=== PATIENT | female | born 1955 | race Caucasian/White ===

== ENCOUNTER 2016-09-04 07:07 | Day surgery (SDC) | payer MEDICAID ==
[2016-09-04 07:44] VITALS: BMI 31.4
[2016-09-04] MEDS ORDERED: Lactated Ringer's 500 ML IV ONE ×2 (08:53)
[2016-09-04] MEDS ORDERED: Propofol 10 mg/ml Inj (20 ML) ONE (09:13)
[2016-09-04] MEDS ORDERED: Lidocaine Hydrochloride 5 ML INJ ONE (09:22)
[2016-09-04 09:51] VITALS: TEMP 98.1
[2016-09-04 10:16] VITALS: O2SAT 99
[2016-09-04 10:19] VITALS: BP 166/96; PULSE 66; RESP 17
== END 2016-09-04 10:17 | disposition home or self-care (01) ==
LOC: C.ENDO 07:07
PROVIDERS: ATTEND Internal Medicine Gastroenterology
DX: K29.50 Unspecified chronic gastritis without bleeding (principal); B96.81 Helicobacter pylori [H. pylori] as the cause of diseases classified elsewhere

== ENCOUNTER 2016-12-06 14:55 | Inpatient (IN) | payer MEDICAID ==
[2016-12-06 14:55] VITALS: BMI 31.4
[2016-12-06] MEDS ORDERED: Sodium Chloride 0.9% 1,000 ML IV ONE (15:59)
--- NOTE | 2016-12-06 16:05 | C.PDOC ---
History Of Present Illness Patient is a 61 y/o female, whose PMHx includes Lupus, and HTN, is sent to the ED by PMD for abnormal lab results. Patient has copy of lab reports, that shows BUN of 96 and creatinine of 9.8. Patient is also complaining of non-radiating, and aching lower back pain for the past month. Patient also notes decreased appetite, and states she has lost 7lbs in the last 3 months unintentionally. Otherwise, denies any n/v/d, abdominal pain, urinary symptoms, weakness/numbness , fever, chills, or any other associated symptoms at this time. Time Seen by Provider: 12/06/16 15:39 Chief Complaint (Nursing): Back Pain History Per: Patient History/Exam Limitations: no limitations Onset/Duration Of Symptoms: Days Current Symptoms Are (Timing): Still Present Quality Of Discomfort: "Pain" Associated Symptoms: None. denies: Incontinence, New Weakness, New Numbness Recent travel outside of the [place]: No Additional History Per: Patient Past Medical History Reviewed: Historical Data, Nursing Documentation, Vital Signs Vital Signs: Last Vital Signs Temp 97 F L 12/06/16 15:06 Pulse 64 12/06/16 17:11 Resp 12 12/06/16 17:11 BP 181/96 H 12/06/16 17:11 Pulse Ox 99 12/06/16 17:34 - Medical History PMH: Back Problems, HTN, Chronic Kidney Disease, Rheumatoid Arthritis Surgical History: Endoscopy - [facility] Procedures OTH UNILAT OOPHORECTOMY (03/02/00) Family History: States: Unknown Family Hx - Social History Hx Tobacco Use: No Hx Alcohol Use: Yes Hx Substance Use: No - Immunization History Hx Tetanus Toxoid Vaccination: No Hx Influenza Vaccination: No Hx Pneumococcal Vaccination: No Review Of Systems Except As Marked, All Systems Reviewed And Found Negative. Constitutional: Positive for: Weight loss. Negative for: Fever, Chills Gastrointestinal: Negative for: Nausea, Vomiting, Abdominal Pain, Diarrhea Genitourinary: Negative for: Dysuria, Frequency, Incontinence, Hematuria Musculoskeletal: Positive for: Back Pain Physical Exam - Physical Exam Appears: Non-toxic, No Acute Distress Skin: Normal Color, Warm, Dry Head: Atraumatic, Normacephalic Eye(s): bilateral: Normal Inspection, EOMI Nose: Normal Oral Mucosa: Moist Neck: Normal ROM, Supple Chest: Symmetrical, No Tenderness Cardiovascular: Rhythm Regular, No Murmur Respiratory: Normal Breath Sounds, No Rales, No Rhonchi, No Wheezing Gastrointestinal/Abdominal: Soft, No Tenderness Back: Normal Inspection, No CVA Tenderness, No Vertebral Tenderness, No Paraspinal Tenderness Extremity: Normal ROM, No Deformity Neurological/Psych: Oriented x3, Normal Speech Gait: Steady ED Course And Treatment - Laboratory Results Result Diagrams: 12/06/16 16:02 12/06/16 16:02 Lab Interpretation: Abnormal ECG: Interpreted By Me, Viewed By Me ECG Rhythm: Sinus Rhythm ECG Interpretation: No Acute Changes O2 Sat by Pulse Oximetry: 99 (on RA) Pulse Ox Interpretation: Normal Progress Note: Labs ordered and reviewed. Patient was given IV fluids in the ER. Medical Decision Making Medical Decision Making: Impression: 61 year old with renal failure Plan: * Labs Progress: Labs show ARF, Lab called with critical value of elevated Creatinine. There are no prior labs available for comparison in [facility]. Patient remained stable in no distress [address] Gregory Medina who admits patients for Dr Lima. He states he accepts patient to service, however he will be unavailable for the next few hours and to contact Dr Patel for admission orders. I call and speak with Dr Patel to make him aware and he will place orders. Disposition - Disposition Disposition: HOSPITALIZED Disposition Time: 16:49 Condition: FAIR - POA Present On Arrival: None - Clinical Impression Clinical Impression: Hypertension, Renal failure, acute - PA / CONFIGURATION MANAGEMENT MANAGER / Resident Statement MD/DO has reviewed & agrees with the documentation as recorded. - Scribe Statement The provider has reviewed the documentation as recorded by the Scribkevyn Medina All medical record entries made by the Surinderibkevyn were at my direction and personally dictated by me. I have reviewed the chart and agree that the record accurately reflects my personal performance of the history, physical exam, medical decision making, and the department course for this patient. I have also personally directed, reviewed, and agree with the discharge instructions and disposition. Decision To Admit - Pt Status Changed To: Hospital Disposition Of: Inpatient - Admit Certification Admit to Inpatient:: After my assessment, the patient will require hospitalization for at least two midnights. This is because of the severity of symptoms shown, intensity of services needed, and/or the medical risk in this patient being treated as an outpatient. - InPatient: Physician Admission Certification:: Patient requires admission for acute renal failure, nephro consult, and other additional diagnostic testing - . Bed Request Type: Regular Admitting Physician: Lisa Medina Patient Diagnosis: Hypertension, Renal failure, acute
[2016-12-06] MEDS ORDERED: Sodium Chloride 0.9% 1,000 ML ONE (16:07)
[2016-12-06 16:08] LABS: BASO % 0.5 % (0.0-2.0); EOS # 0.1 K/uL (0.0-0.7); EOS % 1.1 % (0.0-4.0); HEMOGLOBIN 7.3 g/dL (11.0-16.0); LYMPH # 1.3 K/uL (1.0-4.3); LYMPH % 22.6 % (20.0-40.0); MEAN CELL VOLUME 85.4 fL (81.0-99.0); MEAN CORPUSCULAR HEMOGLOBIN 27.1 pg (27.0-31.0); MEAN CORPUSCULAR HGB CONC 31.7 g/dL (33.0-37.0); MEAN PLATELET VOLUME 7.8 fL (7.2-11.7); MONO # 0.8 K/uL (0.0-0.8); MONO % 12.7 % (0.0-10.0); NEUT # 3.8 K/uL (1.8-7.0); NEUT % 63.1 % (50.0-75.0); RBC 2.71 Mil/uL (3.80-5.20); RED CELL DISTRIBUTION WIDTH 14.4 % (11.5-14.5)
[2016-12-06 16:35] LABS: ALB/GLOB RATIO 1.1 (1.0-2.1); CALCIUM 8.2 mg/dl (8.6-10.4)
[2016-12-06 16:55] LABS: MAGNESIUM 2.2 mg/dL (1.6-2.3)
[2016-12-06 17:15] LABS: SQUAMOUS EPITHIAL < 1 /hpf (0-5); URINE BILIRUBIN NEGATIVE (NEGATIVE); URINE BLOOD NEGATIVE (NEGATIVE); URINE CLARITY Clear (Clear); URINE COLOR Straw (YELLOW); URINE GLUCOSE (UA) 1+ mg/dL (Normal); URINE LEUKOCYTE ESTERASE NEG Leu/uL (Negative); URINE NITRATE NEGATIVE (NEGATIVE); URINE PROTEIN 2+ mg/dL (NEGATIVE); URINE UROBILINOGEN NORMAL mg/dL (0.2-1.0)
[2016-12-06] MEDS: Sodium Chloride 0.45% 1,000 ML IV SCH (21:11)
[2016-12-07 08:37] LABS: BASO % 0.4 % (0.0-2.0); EOS # 0.1 K/uL (0.0-0.7); EOS % 1.1 % (0.0-4.0); HEMOGLOBIN 6.8 g/dL (11.0-16.0); LYMPH # 1.2 K/uL (1.0-4.3); LYMPH % 22.1 % (20.0-40.0); MEAN CELL VOLUME 84.1 fL (81.0-99.0); MEAN CORPUSCULAR HEMOGLOBIN 27.2 pg (27.0-31.0); MEAN CORPUSCULAR HGB CONC 32.3 g/dL (33.0-37.0); MEAN PLATELET VOLUME 8.3 fL (7.2-11.7); MONO # 0.6 K/uL (0.0-0.8); MONO % 11.8 % (0.0-10.0); NEUT # 3.4 K/uL (1.8-7.0); NEUT % 64.6 % (50.0-75.0); RBC 2.5 Mil/uL (3.80-5.20); RED CELL DISTRIBUTION WIDTH 14.2 % (11.5-14.5); WHITE BLOOD COUNT 5.2 K/uL (4.8-10.8)
[2016-12-07 09:00] LABS: ALBUMIN 3.5 g/dL (3.5-5.0)
[2016-12-07 09:04] LABS: CALCIUM 8.3 mg/dl (8.6-10.4)
[2016-12-07] MEDS ORDERED: Home Med 1 UNIT PO SCH (10:00)
[2016-12-07] MEDS ORDERED: Nitroglycerin 0.2 mg/hr Top Patch TD SCH (10:00)
[2016-12-07] MEDS: Sodium Chloride 0.45% 1,000 ML IV SCH (10:40)
[2016-12-07] MEDS: Nitroglycerin 0.2 mg/hr Top Patch TD SCH (10:44)
--- NOTE | 2016-12-07 10:45 | US ---
PROCEDURE: Ultrasound of the Kidneys HISTORY: renal failure COMPARISON: None available. TECHNIQUE: Sonogram of the kidneys. FINDINGS: RIGHT KIDNEY: Measures: 7.7 cm. Small in size, normal in contour and there is diffuse increased echogenicity. No stone, solid mass lesion or hydronephrosis visualized. There is a 6 mm simple cyst in the interpolar region. LEFT KIDNEY: Measures: 9.5 cm. Normal in size, normal in contour and there is diffuse increased echogenicity. No stone, solid mass lesion or hydronephrosis visualized. There is a 10 mm simple cyst in the lower pole. OTHER FINDINGS: None. IMPRESSION: 1. Medical renal disease. 2. Small right kidney.
[2016-12-08] MEDS: Sodium Chloride 0.45% 1,000 ML IV SCH ×2 (00:08→13:06)
[2016-12-08] MEDS: Nitroglycerin 0.2 mg/hr Top Patch TD SCH (09:08)
--- NOTE | 2016-12-08 12:09 | CP.PCM.PN ---
Subjective - Date & Time of Evaluation Date of Evaluation: 12/08/16 Time of Evaluation: 08:15 - Subjective Subjective: PGY2 Medicine Note - Dr. Medina's Service Patient is a 61 y/o female with PMHx CKD, HTN, RA, Lupus, back problems - sent to the ED by PMD for abnormal lab results. Patient has copy of lab reports, that shows BUN of 96 and creatinine of 9.8. Patient is also complaining of non- radiating, and aching lower back pain for the past month. Patient also notes decreased appetite, and states she has lost 30lbs in the last 3 months unintentionally. She denies f/c, weakness, chest pain, SOB, n/v, d/c, abdominal pain, urinary symptoms, or any additional complaints at this time. PMH: CKD, HTN, RA, Lupus, back problems Surgical History: Endoscopy, hysterectomy (20yrs ago), L breast lumpectomy ( denies [place]), Varicose vein removal - L leg (30yrs ago). MEDs - HCTZ 100mg PO TID, Atenolol 100mg PO qd, Amlodipine 10mg PO qd, Losartan- HCTZ 100-25 PO qd, Nitro 0.2 NKDA FamHx: Mom of VT at 84yo; Dad of liver tumor at 86yo SocHx: Denies tobacco, ETOH, or illicit drug use Objective - Vital Signs/Intake and Output Vital Signs (last 24 hours): Temp Pulse Resp BP Pulse Ox 98.7 F 60 20 149/97 H 97 12/08/16 07:54 12/08/16 07:54 12/08/16 07:54 12/08/16 07:54 12/08/16 07:54 Intake and Output: 12/08/16 12/08/16 06:59 18:59 Intake Total 2039 Balance 2039 - Medications Medications: Current Medications Amlodipine Besylate (Norvasc) 10 mg PO DAILY [facility] Last Admin: 12/08/16 09:07 Dose: 10 mg Atenolol (Tenormin) 100 mg PO DAILY [facility] Last Admin: 12/08/16 09:08 Dose: 100 mg Heparin Sodium (Porcine) (Heparin) 5,000 units SC Q12 [facility] Last Admin: 12/08/16 09:08 Dose: 5,000 units Hydralazine HCl (Apresoline) 100 mg PO BID [facility] Last Admin: 12/08/16 09:08 Dose: 100 mg Hydrochlorothiazide (Hydrodiuril) 25 mg PO DAILY [facility] Last Admin: 12/08/16 09:08 Dose: 25 mg Sodium Chloride (Sodium Chloride 0.45%) 1,000 mls @ 75 mls/hr IV .[id number] [facility] Last Admin: 12/08/16 00:08 Dose: 75 mls/hr Losartan Potassium (Cozaar) 100 mg PO DAILY [facility] Last Admin: 12/08/16 09:08 Dose: 100 mg Nitroglycerin (Nitro-Dur 0.2 Mg/Hr Patch) 1 patch TD DAILY [facility] Last Admin: 12/08/16 09:08 Dose: 1 patch - Labs Labs: 12/07/16 08:21 12/07/16 08:21 - Constitutional Appears: Non-toxic, No Acute Distress - Head Exam Head Exam: ATRAUMATIC, NORMAL INSPECTION - Eye Exam Eye Exam: EOMI, Normal appearance - ENT Exam ENT Exam: Mucous Membranes Moist, Normal Exam - Neck Exam Neck Exam: Full ROM. absent: Lymphadenopathy - Respiratory Exam Respiratory Exam: Clear to Ausculation Bilateral, NORMAL BREATHING PATTERN. absent: Rhonchi, Wheezes - Cardiovascular Exam Cardiovascular Exam: REGULAR RHYTHM, +S1, +S2 - GI/Abdominal Exam GI & Abdominal Exam: Soft, Hypoactive Bowel Sounds. absent: Tenderness - Back Exam Back Exam: paraspinal tenderness. absent: CVA tenderness (L), CVA tenderness (R ) - Neurological Exam Neurological Exam: Alert, Awake, Oriented x3 - Psychiatric Exam Psychiatric exam: Normal Affect, Normal Mood - Skin Skin Exam: Dry, Intact, Normal Color, Warm Assessment and Plan - Assessment and Plan (Free Text) Assessment: Acute on Chronic Kidney Disease Renal US - Medical renal disease, Small right kidney. see full report EKG - nsr, RBBB, see full report. -Consult nephrology, Dr. Iqbal, f/u recs - will see pt 12/09 in AM. -BUN 77 / Cr 10.1 -NS 0.45 at 75cc/hr Lower back pain - likely musculo-skeletal - no CVA tenderness HTN BP 149/97 Norvasc 10mg PO qd Atenolol 100mg PO qd Hydralazine 100mg PO BID HCTZ 25mg PO qd Losartan 100mg PO qd Nitroglycerin 1patch TD daily Anemia - Hgb 6.9, Hct 21.9 - Likely due to poor renal function -type and screen Hx of Lupus - patient is not taking any medications at this time. Prophylaxis - renal diet - heparin 5k u SC Q12 All medical management as per Dr. Nir Medina.
[2016-12-08 14:43] LABS: BASO % 0.4 % (0.0-2.0); EOS % 0.5 % (0.0-4.0); HEMOGLOBIN 6.9 g/dL (11.0-16.0); LYMPH # 1.2 K/uL (1.0-4.3); LYMPH % 25.2 % (20.0-40.0); MEAN CORPUSCULAR HEMOGLOBIN 26.5 pg (27.0-31.0); MEAN CORPUSCULAR HGB CONC 31.5 g/dL (33.0-37.0); MEAN PLATELET VOLUME 7.8 fL (7.2-11.7); MONO # 0.6 K/uL (0.0-0.8); MONO % 12.4 % (0.0-10.0); NEUT % 61.5 % (50.0-75.0); NRBC % 0.1 % (0.0-2.0); RBC 2.6 Mil/uL (3.80-5.20); RED CELL DISTRIBUTION WIDTH 14.1 % (11.5-14.5); WHITE BLOOD COUNT 4.9 K/uL (4.8-10.8)
[2016-12-08 14:47] LABS: ALBUMIN 3.6 g/dL (3.5-5.0)
[2016-12-08 14:50] LABS: CALCIUM 8.2 mg/dl (8.6-10.4)
[2016-12-08 14:51] LABS: MAGNESIUM 2.1 mg/dL (1.6-2.3)
[2016-12-08 14:59] LABS: COMPLEMENT C4 27.1 mg/dL (14.0-44.0)
--- NOTE | 2016-12-08 16:05 | CP.PCM.HP ---
Past Patient History - Past Medical History & Family History Past Medical History?: Yes - Past Social History Smoking Status: Never Smoked - CARDIAC Hx Cardiac Disorders: Yes Hx Angina: No Hx Atrial Fibrillation: No Hx Cardia Arrhythmia: No Hx Circulatory Problems: No Hx Congestive Heart Failure: No Hx Heart Attack: No Hx Heart Murmur: No Hx Heart Transplant: No Hx Hypercholesterolemia: No Hx Hypertension: Yes Hx Hypotension: No Hx Internal Defibrillator: No Hx Mitral Valve Prolapse: No Hx Pacemaker: No - PULMONARY Hx Respiratory Disorders: No - NEUROLOGICAL Hx Neurological Disorder: No - HEENT Hx HEENT Problems: No - RENAL Hx Chronic Kidney Disease: Yes Hx Dialysis: No Hx Kidney Stones: No Hx Neurogenic Bladder: No Hx Pyelonephritis: No Hx Renal (Kidney) Cancer: No Hx Renal Failure: No - ENDOCRINE/METABOLIC Hx Endocrine Disorders: Yes Hx Adrenal Cancer: No Hx Diabetes Insipidus: No Hx Diabetes Mellitus Type 1: No Hx Diabetes Mellitus Type 2: No Hx Hyperthyroidism: No Hx Hypothyroidism: No Hx Systemic Lupus Erythematosus: Yes - HEMATOLOGICAL/ONCOLOGICAL Hx Blood Disorders: No Hx AIDS: No Hx Anemia: No Hx Blood Transfusions: No Hx Blood Transfusion Reaction: No Hx Bruising: No Hx Cancer: No Hx Chemotherapy: No Hx Cirrhosis: No Hx Gum Bleeding: No Hx Hemophilia: No Hx Hepatitis A: No Hx Hepatitis B: Yes Hx Hepatitis C: No Hx Human Immunodeficiency Virus (HIV): No Hx Leukemia: No Hx Metastesis: No Hx Shingles: No Hx Sickle Cell Disease: No Hx Unexplained Bleeding: No Hx von Willebrand's Disease: No - INTEGUMENTARY Hx Dermatological Problems: No - MUSCULOSKELETAL/RHEUMATOLOGICAL Hx Falls: No - GASTROINTESTINAL Hx Gastrointestinal Disorders: No - GENITOURINARY/GYNECOLOGICAL Hx Genitourinary Disorders: No - PSYCHIATRIC Hx Psychophysiologic Disorder: No Hx Substance Use: No - SURGICAL HISTORY Hx Surgeries: Yes Hx Abdominal Aortic Aneurysm Repair: No Hx Amputation: No Hx Angiogram: No Hx Angioplasty: No Hx Appendectomy: No Hx Arteriovenous Shunt: No Hx Arthroscopy: No Hx Bile Duct Stent: No Hx Breast Biopsy: No Hx Cataract Extraction: No Hx Cardiac Catheterization: No Hx Carotid Endarterectomy: No Hx Section: No Hx Cholecystectomy: No Hx Coronary Artery Bypass Graft: No Hx Coronary Stent: No Hx Dilation and Curettage: No Hx Eye Surgery: No Hx Femoral-Popliteal Bypass Graft: No Hx Gastric Bypass Surgery: No Hx Herniorrhaphy: No Hx Hysterectomy: Yes Hx Joint Replacement: No Hx Kidney Transplant: No Hx Liver Transplant: No Hx Mastectomy: No Hx Musculoskeletal Surgery: No Hx Open Heart Surgery: No Hx Open Reduction Internal Fixation: No Hx Orthopedic Surgery: No Hx Parathyroidectomy: No Hx Penile Implant: No Hx Pulmonary Surgery: No Hx Splenectomy: No Hx Thyroidectomy: No Hx Tonsillectomy: No Hx Tubal Ligation: No Hx Valve Replacement: No Hx Vascular Surgery: No Hx Vascular Access Device: No Other/Comment: LT BREAST CYST REMOVED - ANESTHESIA Hx Anesthesia: Yes Hx Anesthesia Reactions: No Hx Malignant Hyperthermia: No Meds Allergies/Adverse Reactions: Allergies Allergy/AdvReac Type Severity Reaction Status Date / Time No Known Allergies Allergy Verified 12/06/16 15:07 Physical Exam - Constitutional Appears: Well - Head Exam Head Exam: ATRAUMATIC, NORMAL INSPECTION, NORMOCEPHALIC - Eye Exam Eye Exam: EOMI, Normal appearance, PERRL Pupil Exam: NORMAL ACCOMODATION, PERRL - ENT Exam ENT Exam: Mucous Membranes Moist, Normal Exam - Neck Exam Neck exam: Positive for: Normal Inspection - Respiratory Exam Respiratory Exam: Decreased Breath Sounds - Cardiovascular Exam Cardiovascular Exam: REGULAR RHYTHM, +S1, +S2 - GI/Abdominal Exam GI & Abdominal Exam: Diminished Bowel Sounds, Soft - Rectal Exam Rectal Exam: Deferred Results - Vital Signs Recent Vital Signs: Last Vital Signs Temp 98.7 F 12/08/16 07:54 Pulse 60 12/08/16 07:54 Resp 20 12/08/16 07:54 BP 149/97 H 12/08/16 07:54 Pulse Ox 97 12/08/16 07:54 - Labs Result Diagrams: 12/08/16 14:25 12/08/16 14:25 Labs: Laboratory Results - last 24 hr 12/08/16 12/08/16 12/08/16 14:25 14:25 14:25 WBC 4.9 RBC 2.60 L Hgb 6.9 L Hct 21.9 L MCV 84.0 MCH 26.5 L MCHC 31.5 L RDW 14.1 Plt Count 211 MPV 7.8 Neut % (Auto) 61.5 Lymph % (Auto) 25.2 [place] % (Auto) 12.4 H Eos % (Auto) 0.5 Baso % (Auto) 0.4 Neut # 3.0 Lymph # 1.2 [place] # 0.6 Eos # 0.0 Baso # 0.0 Sodium 136 Potassium 3.7 Chloride 105 Carbon Dioxide 17 L Anion Gap 18 BUN 77 H Creatinine 10.1 H* Est GFR ( Amer) 5 Est GFR (Non-Af Amer) 4 Random Glucose 97 Calcium 8.2 L Phosphorus 7.0 H Magnesium 2.1 Total Bilirubin 0.5 AST 18 ALT 9 D Alkaline Phosphatase 112 Total Protein 7.4 Albumin 3.6 Globulin 3.8 Albumin/Globulin Ratio 1.0 Complement C3 Complement C4 Hep B Core IgM Ab Hepatitis C Antibody Negative 12/08/16 12/08/16 14:25 14:25 WBC RBC Hgb Hct MCV MCH MCHC RDW Plt Count MPV Neut % (Auto) Lymph % (Auto) [place] % (Auto) Eos % (Auto) Baso % (Auto) Neut # Lymph # [place] # Eos # Baso # Sodium Potassium Chloride Carbon Dioxide Anion Gap BUN Creatinine Est GFR ( Amer) Est GFR (Non-Af Amer) Random Glucose Calcium Phosphorus Magnesium Total Bilirubin AST ALT Alkaline Phosphatase Total Protein Albumin Globulin Albumin/Globulin Ratio Complement C3 97.0 Complement C4 27.1 Hep B Core IgM Ab Negative Hepatitis C Antibody
[2016-12-09] MEDS: Sodium Chloride 0.45% 1,000 ML IV SCH ×2 (02:02→16:30)
[2016-12-09 06:32] LABS: BASO % 0.4 % (0.0-2.0); EOS # 0.1 K/uL (0.0-0.7); EOS % 0.9 % (0.0-4.0); HEMOGLOBIN 6.9 g/dL (11.0-16.0); LYMPH # 1.2 K/uL (1.0-4.3); LYMPH % 21.7 % (20.0-40.0); MEAN CELL VOLUME 83.8 fL (81.0-99.0); MEAN CORPUSCULAR HEMOGLOBIN 27.1 pg (27.0-31.0); MEAN CORPUSCULAR HGB CONC 32.4 g/dL (33.0-37.0); MEAN PLATELET VOLUME 7.9 fL (7.2-11.7); MONO # 0.6 K/uL (0.0-0.8); MONO % 10.6 % (0.0-10.0); NEUT # 3.8 K/uL (1.8-7.0); NEUT % 66.4 % (50.0-75.0); RBC 2.55 Mil/uL (3.80-5.20); RED CELL DISTRIBUTION WIDTH 13.9 % (11.5-14.5); WHITE BLOOD COUNT 5.8 K/uL (4.8-10.8)
[2016-12-09 06:53] LABS: ALBUMIN 3.4 g/dL (3.5-5.0)
[2016-12-09 06:56] LABS: ALB/GLOB RATIO 0.9 (1.0-2.1)
[2016-12-09 06:57] LABS: CALCIUM 8.6 mg/dl (8.6-10.4); MAGNESIUM 2.2 mg/dL (1.6-2.3)
[2016-12-09 09:35] LABS: CREATININE, RANDOM URINE 35.3 mg/dL
--- NOTE | 2016-12-09 10:57 | CP.PCM.CON ---
History of Present Illness - History of Present Illness History of Present Illness: 61 y/o female with Hx/o CKD, SLE, HTN was admitted on Thursday for c/o low back pain. Pts creat level was 9.7 & BUN of 96. No improvement in renal function after hydration. Back pain is better but Pt c/o poor appetite ,nausea & RUQ pain Pt has not seen a [employer] for a long time. Past Patient History - Past Medical History & Family History Past Medical History?: Yes - Past Social History Smoking Status: Never Smoked - CARDIAC Hx Cardiac Disorders: Yes Hx Angina: No Hx Atrial Fibrillation: No Hx Cardia Arrhythmia: No Hx Circulatory Problems: No Hx Congestive Heart Failure: No Hx Heart Attack: No Hx Heart Murmur: No Hx Heart Transplant: No Hx Hypercholesterolemia: No Hx Hypertension: Yes Hx Hypotension: No Hx Internal Defibrillator: No Hx Mitral Valve Prolapse: No Hx Pacemaker: No - PULMONARY Hx Respiratory Disorders: No - NEUROLOGICAL Hx Neurological Disorder: No - HEENT Hx HEENT Problems: No - RENAL Hx Chronic Kidney Disease: Yes Hx Dialysis: No Hx Kidney Stones: No Hx Neurogenic Bladder: No Hx Pyelonephritis: No Hx Renal (Kidney) Cancer: No Hx Renal Failure: No - ENDOCRINE/METABOLIC Hx Endocrine Disorders: Yes Hx Adrenal Cancer: No Hx Diabetes Insipidus: No Hx Diabetes Mellitus Type 1: No Hx Diabetes Mellitus Type 2: No Hx Hyperthyroidism: No Hx Hypothyroidism: No Hx Systemic Lupus Erythematosus: Yes - HEMATOLOGICAL/ONCOLOGICAL Hx Blood Disorders: No Hx AIDS: No Hx Anemia: No Hx Blood Transfusions: No Hx Blood Transfusion Reaction: No Hx Bruising: No Hx Cancer: No Hx Chemotherapy: No Hx Cirrhosis: No Hx Gum Bleeding: No Hx Hemophilia: No Hx Hepatitis A: No Hx Hepatitis B: Yes Hx Hepatitis C: No Hx Human Immunodeficiency Virus (HIV): No Hx Leukemia: No Hx Metastesis: No Hx Shingles: No Hx Sickle Cell Disease: No Hx Unexplained Bleeding: No Hx von Willebrand's Disease: No - INTEGUMENTARY Hx Dermatological Problems: No - MUSCULOSKELETAL/RHEUMATOLOGICAL Hx Falls: No - GASTROINTESTINAL Hx Gastrointestinal Disorders: No - GENITOURINARY/GYNECOLOGICAL Hx Genitourinary Disorders: No - PSYCHIATRIC Hx Psychophysiologic Disorder: No Hx Substance Use: No - SURGICAL HISTORY Hx Surgeries: Yes Hx Abdominal Aortic Aneurysm Repair: No Hx Amputation: No Hx Angiogram: No Hx Angioplasty: No Hx Appendectomy: No Hx Arteriovenous Shunt: No Hx Arthroscopy: No Hx Bile Duct Stent: No Hx Breast Biopsy: No Hx Cataract Extraction: No Hx Cardiac Catheterization: No Hx Carotid Endarterectomy: No Hx Section: No Hx Cholecystectomy: No Hx Coronary Artery Bypass Graft: No Hx Coronary Stent: No Hx Dilation and Curettage: No Hx Eye Surgery: No Hx Femoral-Popliteal Bypass Graft: No Hx Gastric Bypass Surgery: No Hx Herniorrhaphy: No Hx Hysterectomy: Yes Hx Joint Replacement: No Hx Kidney Transplant: No Hx Liver Transplant: No Hx Mastectomy: No Hx Musculoskeletal Surgery: No Hx Open Heart Surgery: No Hx Open Reduction Internal Fixation: No Hx Orthopedic Surgery: No Hx Parathyroidectomy: No Hx Penile Implant: No Hx Pulmonary Surgery: No Hx Splenectomy: No Hx Thyroidectomy: No Hx Tonsillectomy: No Hx Tubal Ligation: No Hx Valve Replacement: No Hx Vascular Surgery: No Hx Vascular Access Device: No Other/Comment: LT BREAST CYST REMOVED - ANESTHESIA Hx Anesthesia: Yes Hx Anesthesia Reactions: No Hx Malignant Hyperthermia: No Meds Allergies/Adverse Reactions: Allergies Allergy/AdvReac Type Severity Reaction Status Date / Time No Known Allergies Allergy Verified 12/06/16 15:07 - Medications Medications: Current Medications Amlodipine Besylate (Norvasc) 10 mg PO DAILY [facility] Last Admin: 12/08/16 09:07 Dose: 10 mg Atenolol (Tenormin) 100 mg PO DAILY [facility] Last Admin: 12/08/16 09:08 Dose: 100 mg Heparin Sodium (Porcine) (Heparin) 5,000 units SC Q12 [facility] Last Admin: 12/08/16 21:20 Dose: 5,000 units Hydralazine HCl (Apresoline) 100 mg PO BID [facility] Last Admin: 12/08/16 17:30 Dose: 100 mg Hydrochlorothiazide (Hydrodiuril) 25 mg PO DAILY [facility] Last Admin: 12/08/16 09:08 Dose: 25 mg Sodium Chloride (Sodium Chloride 0.45%) 1,000 mls @ 75 mls/hr IV .[id number] [facility] Last Admin: 12/09/16 02:02 Dose: 75 mls/hr Losartan Potassium (Cozaar) 100 mg PO DAILY [facility] Last Admin: 12/08/16 09:08 Dose: 100 mg Nitroglycerin (Nitro-Dur 0.2 Mg/Hr Patch) 1 patch TD DAILY [facility] Last Admin: 12/08/16 09:08 Dose: 1 patch Physical Exam - Constitutional Appears: No Acute Distress - Head Exam Head Exam: ATRAUMATIC, NORMOCEPHALIC - Eye Exam Eye Exam: Normal appearance Additional comments: Conjunctivae pale sclera anicteric - ENT Exam ENT Exam: Mucous Membranes Dry - Respiratory Exam Additional comments: Lungs clear - Cardiovascular Exam Cardiovascular Exam: REGULAR RHYTHM Additional comments: No rub or gallop - GI/Abdominal Exam GI & Abdominal Exam: Soft Additional comments: Mild RUQ tenderness. No guarding - Rectal Exam Rectal Exam: Deferred - Extremities Exam Additional comments: No edema or cyanosis Results - Vital Signs Recent Vital Signs: Last Vital Signs Temp 98.1 F 12/09/16 08:42 Pulse 57 L 12/09/16 08:42 Resp 20 12/09/16 08:42 BP 149/86 12/09/16 08:42 Pulse Ox 96 12/09/16 08:42 - Labs Result Diagrams: 12/09/16 06:15 12/09/16 06:15 Labs: Laboratory Results - last 24 hr 12/08/16 12/08/16 12/08/16 14:25 14:25 14:25 WBC 4.9 RBC 2.60 L Hgb 6.9 L Hct 21.9 L MCV 84.0 MCH 26.5 L MCHC 31.5 L RDW 14.1 Plt Count 211 MPV 7.8 Neut % (Auto) 61.5 Lymph % (Auto) 25.2 [place] % (Auto) 12.4 H Eos % (Auto) 0.5 Baso % (Auto) 0.4 Neut # 3.0 Lymph # 1.2 [place] # 0.6 Eos # 0.0 Baso # 0.0 Sodium 136 Potassium 3.7 Chloride 105 Carbon Dioxide 17 L Anion Gap 18 BUN 77 H Creatinine 10.1 H* Est GFR ( Amer) 5 Est GFR (Non-Af Amer) 4 Random Glucose 97 Calcium 8.2 L Phosphorus 7.0 H Magnesium 2.1 Total Bilirubin 0.5 AST 18 ALT 9 D Alkaline Phosphatase 112 Total Protein 7.4 Albumin 3.6 Globulin 3.8 Albumin/Globulin Ratio 1.0 Ur Random Creatinine Ur Random Sodium Ur Random Potassium Complement C3 Complement C4 Hep B Core IgM Ab Hepatitis C Antibody Negative Blood Type Blood Type Confirm Antibody Screen 06/12/08/16 12/09/16 14:25 14:25 06:15 WBC 5.8 RBC 2.55 L Hgb 6.9 L Hct 21.3 L MCV 83.8 MCH 27.1 MCHC 32.4 L RDW 13.9 Plt Count 209 MPV 7.9 Neut % (Auto) 66.4 Lymph % (Auto) 21.7 [place] % (Auto) 10.6 H Eos % (Auto) 0.9 Baso % (Auto) 0.4 Neut # 3.8 Lymph # 1.2 [place] # 0.6 Eos # 0.1 Baso # 0.0 Sodium Potassium Chloride Carbon Dioxide Anion Gap BUN Creatinine Est GFR ( Amer) Est GFR (Non-Af Amer) Random Glucose Calcium Phosphorus Magnesium Total Bilirubin AST ALT Alkaline Phosphatase Total Protein Albumin Globulin Albumin/Globulin Ratio Ur Random Creatinine Ur Random Sodium Ur Random Potassium Complement C3 97.0 Complement C4 27.1 Hep B Core IgM Ab Negative Hepatitis C Antibody Blood Type Blood Type Confirm Antibody Screen 12/09/16 12/09/16 12/09/16 06:15 06:15 09:13 WBC RBC Hgb Hct MCV MCH MCHC RDW Plt Count MPV Neut % (Auto) Lymph % (Auto) [place] % (Auto) Eos % (Auto) Baso % (Auto) Neut # Lymph # [place] # Eos # Baso # Sodium 138 Potassium 3.6 Chloride 107 Carbon Dioxide 16 L Anion Gap 19 BUN 76 H Creatinine 10.3 H* Est GFR ( Amer) 5 Est GFR (Non-Af Amer) 4 Random Glucose 85 Calcium 8.6 Phosphorus 7.1 H Magnesium 2.2 Total Bilirubin 0.5 AST 16 ALT 8 L Alkaline Phosphatase 110 Total Protein 7.1 Albumin 3.4 L Globulin 3.7 Albumin/Globulin Ratio 0.9 L Ur Random Creatinine 35.3 Ur Random Sodium 72 Ur Random Potassium Complement C3 Complement C4 Hep B Core IgM Ab Hepatitis C Antibody Blood Type B POSITIVE Blood Type Confirm B POSITIVE Antibody Screen Negative 12/09/16 09:13 WBC RBC Hgb Hct MCV MCH MCHC RDW Plt Count MPV Neut % (Auto) Lymph % (Auto) [place] % (Auto) Eos % (Auto) Baso % (Auto) Neut # Lymph # [place] # Eos # Baso # Sodium Potassium Chloride Carbon Dioxide Anion Gap BUN Creatinine Est GFR ( Amer) Est GFR (Non-Af Amer) Random Glucose Calcium Phosphorus Magnesium Total Bilirubin AST ALT Alkaline Phosphatase Total Protein Albumin Globulin Albumin/Globulin Ratio Ur Random Creatinine Ur Random Sodium Ur Random Potassium 9.6 Complement C3 Complement C4 Hep B Core IgM Ab Hepatitis C Antibody Blood Type Blood Type Confirm Antibody Screen Assessment & Plan - Assessment and Plan (Free Text) Assessment: Pt ghas Stage 1V kidney disease. today BUN/Creat is 76/10.3 Metabolic acidosis noted Anemia most likely sec to CKD SLE HTN Plan: Pt needs dialysis. Benefits of dialysis explained to Pt. Dialysis complications also explained. Pt agrees for dialysis. & signed consent Will need Dialysis access iP[facility] Hepatitis profile phos binders
[2016-12-09] MEDS: Nitroglycerin 0.2 mg/hr Top Patch TD SCH (11:06)
[2016-12-09] MEDS ORDERED: Epoetin Alfa 10,000 unit/ml Dialysis IV ONE (11:14)
--- NOTE | 2016-12-09 11:50 | CP.PCM.PN ---
Subjective - Date & Time of Evaluation Date of Evaluation: 12/09/16 Time of Evaluation: 07:45 - Subjective Subjective: PGY2 Medicine Note - Dr. Medina's Service Patient seen and examined at bedside. No overnight events per nursing. Patient resting comfortably. She has agreed to dialysis, and plan will be for dialysis catheter placement tomorrow morning with surgical team. Denies f/c, headache, blurry vision, chest pain, palpitations, SOB, abdominal pain, n/v, d/c, dysuria , urinary frequency, or any other acute complaints. Objective - Vital Signs/Intake and Output Vital Signs (last 24 hours): Temp Pulse Resp BP Pulse Ox 98.1 F 57 L 20 149/86 96 12/09/16 08:42 12/09/16 08:42 12/09/16 08:42 12/09/16 08:42 12/09/16 08:42 - Medications Medications: Current Medications Amlodipine Besylate (Norvasc) 10 mg PO DAILY [facility] Last Admin: 12/09/16 11:10 Dose: 10 mg Atenolol (Tenormin) 100 mg PO DAILY [facility] Last Admin: 12/09/16 11:07 Dose: 100 mg Heparin Sodium (Porcine) (Heparin) 5,000 units SC Q12 [facility] Last Admin: 12/09/16 11:07 Dose: 5,000 units Hydralazine HCl (Apresoline) 100 mg PO BID [facility] Last Admin: 12/09/16 11:06 Dose: 100 mg Hydrochlorothiazide (Hydrodiuril) 25 mg PO DAILY [facility] Last Admin: 12/09/16 11:06 Dose: 25 mg Sodium Chloride (Sodium Chloride 0.45%) 1,000 mls @ 75 mls/hr IV .[id number] [facility] Last Admin: 12/09/16 02:02 Dose: 75 mls/hr Losartan Potassium (Cozaar) 100 mg PO DAILY [facility] Last Admin: 12/09/16 11:06 Dose: 100 mg Nitroglycerin (Nitro-Dur 0.2 Mg/Hr Patch) 1 patch TD DAILY [facility] Last Admin: 12/09/16 11:06 Dose: 1 patch Potassium Chloride (K-Dur 20 Meq Er Tab) 40 meq PO ONCE ONE Stop: 12/10/16 11:41 - Labs Labs: 12/09/16 06:15 12/09/16 06:15 - Additional Findings Additional findings: - Constitutional Appears: Non-toxic, No Acute Distress - Head Exam Head Exam: ATRAUMATIC, NORMAL INSPECTION - Eye Exam Eye Exam: EOMI, Normal appearance - ENT Exam ENT Exam: Mucous Membranes Moist, Normal Exam - Neck Exam Neck Exam: Full ROM. absent: Lymphadenopathy - Respiratory Exam Respiratory Exam: Clear to Ausculation Bilateral, NORMAL BREATHING PATTERN. absent: Rhonchi, Wheezes - Cardiovascular Exam Cardiovascular Exam: REGULAR RHYTHM, +S1, +S2 - GI/Abdominal Exam GI & Abdominal Exam: Soft, Normal Bowel Sounds. absent: Tenderness - Back Exam Back Exam: absent: CVA tenderness (L), CVA tenderness (R), Paraspinal tenderness - Neurological Exam Neurological Exam: Alert, Awake, Oriented x3 - Psychiatric Exam Psychiatric exam: Normal Affect, Normal Mood - Skin Skin Exam: Dry, Intact, Normal Color, Warm Assessment and Plan - Assessment and Plan (Free Text) Assessment: Stage 5 Kidney Disease 12/09: No improvement in BUN/Cr with IVF. Patient will receive dialysis catheter tomorrow in AM with surgery team. Renal US - Medical renal disease, Small right kidney. see full report EKG - nsr, RBBB, see full report. -Consult nephrology, Dr. Ibqal, f/u recs - will see pt 12/09 in AM. -BUN 77 / Cr 10.1 -NS 0.45 at 75cc/hr Metabolic Acidosis 12/09: Sodium Bicarb 650mg 1 tab Q6H x3 doses. Will re-evaluate in am after catheter placed. HTN BP 149/86 - stable Norvasc 10mg PO qd Atenolol 100mg PO qd Hydralazine 100mg PO BID HCTZ 25mg PO qd Losartan 100mg PO qd Nitroglycerin 1patch TD daily Anemia 12/09: transfused 1u PRBC - Hgb 6.9, Hct 21.9 - Likely due to poor renal function -type and screen Hx of Lupus - patient is not taking any medications at this time. Lower back pain 12/09: Resolved - likely musculo-skeletal - no CVA tenderness Prophylaxis - renal diet - heparin 5k u SC Q12 All medical management as per Dr. Nir Medina.
[2016-12-09 14:38] LABS: IRON 48 ug/dL (37-170)
[2016-12-09 14:47] LABS: % IRON SATURATION 17 (20-55); TOTAL IRON BINDING CAPACITY 278 ug/dL (250-450)
[2016-12-09 14:59] LABS: HEPATITIS B CORE AB NEGATIVE (NEGATIVE)
[2016-12-09 15:12] LABS: HEPATITIS C ANTIBODY NEGATIVE (NEGATIVE)
--- NOTE | 2016-12-09 15:26 | CP.PCM.PN ---
Subjective - Date & Time of Evaluation Date of Evaluation: 12/09/16 Time of Evaluation: 08:40 - Subjective Subjective: clinically same Objective - Vital Signs/Intake and Output Vital Signs (last 24 hours): Temp Pulse Resp BP Pulse Ox 98.1 F 57 L 20 149/86 96 12/09/16 08:42 12/09/16 08:42 12/09/16 08:42 12/09/16 08:42 12/09/16 08:42 Intake and Output: 12/09/16 12/09/16 06:59 18:59 Intake Total 1074 Balance 1074 - Medications Medications: Current Medications Amlodipine Besylate (Norvasc) 10 mg PO DAILY [facility] Last Admin: 12/09/16 11:10 Dose: 10 mg Atenolol (Tenormin) 100 mg PO DAILY [facility] Last Admin: 12/09/16 11:07 Dose: 100 mg Heparin Sodium (Porcine) (Heparin) 5,000 units SC Q12 [facility] Last Admin: 12/09/16 11:07 Dose: 5,000 units Hydralazine HCl (Apresoline) 100 mg PO BID [facility] Last Admin: 12/09/16 11:06 Dose: 100 mg Hydrochlorothiazide (Hydrodiuril) 25 mg PO DAILY [facility] Last Admin: 12/09/16 11:06 Dose: 25 mg Sodium Chloride (Sodium Chloride 0.45%) 1,000 mls @ 75 mls/hr IV .[id number] [facility] Last Admin: 12/09/16 02:02 Dose: 75 mls/hr Losartan Potassium (Cozaar) 100 mg PO DAILY [facility] Last Admin: 12/09/16 11:06 Dose: 100 mg Nitroglycerin (Nitro-Dur 0.2 Mg/Hr Patch) 1 patch TD DAILY [facility] Last Admin: 12/09/16 11:06 Dose: 1 patch Potassium Chloride (K-Dur 20 Meq Er Tab) 40 meq PO ONCE ONE Stop: 12/10/16 11:41 - Labs Labs: 12/09/16 06:15 12/09/16 06:15 - Constitutional Appears: Well - Head Exam Head Exam: ATRAUMATIC, NORMAL INSPECTION, NORMOCEPHALIC - Eye Exam Eye Exam: EOMI, Normal appearance, PERRL Pupil Exam: NORMAL ACCOMODATION, PERRL - ENT Exam ENT Exam: Mucous Membranes Moist, Normal Exam - Neck Exam Neck Exam: Full ROM, Normal Inspection. absent: Lymphadenopathy - Respiratory Exam Respiratory Exam: Decreased Breath Sounds - Cardiovascular Exam Cardiovascular Exam: REGULAR RHYTHM, +S1, +S2 - GI/Abdominal Exam GI & Abdominal Exam: Soft, Diminished Bowel Sounds - Rectal Exam Rectal Exam: Deferred
--- NOTE | 2016-12-09 21:32 | CARD ---
APPROVED REPORT EKG Measurement Heart [id number] MA [id number] <Conclusion> Normal sinus rhythm Right bundle branch block Abnormal ECG
[2016-12-10] MEDS: Sodium Chloride 0.45% 1,000 ML IV SCH ×2 (05:30→18:26)
[2016-12-10 06:56] LABS: ALBUMIN 3.5 g/dL (3.5-5.0)
[2016-12-10 06:58] LABS: BASO % 0.3 % (0.0-2.0); EOS # 0.1 K/uL (0.0-0.7); EOS % 0.8 % (0.0-4.0); HEMOGLOBIN 7.8 g/dL (11.0-16.0); LYMPH # 1.4 K/uL (1.0-4.3); LYMPH % 20.8 % (20.0-40.0); MEAN CELL VOLUME 82.7 fL (81.0-99.0); MEAN CORPUSCULAR HEMOGLOBIN 26.7 pg (27.0-31.0); MEAN CORPUSCULAR HGB CONC 32.2 g/dL (33.0-37.0); MEAN PLATELET VOLUME 8.1 fL (7.2-11.7); MONO # 0.7 K/uL (0.0-0.8); MONO % 10.3 % (0.0-10.0); NEUT # 4.7 K/uL (1.8-7.0); NEUT % 67.8 % (50.0-75.0); RBC 2.93 Mil/uL (3.80-5.20); RED CELL DISTRIBUTION WIDTH 15.2 % (11.5-14.5); WHITE BLOOD COUNT 6.9 K/uL (4.8-10.8)
[2016-12-10 07:00] LABS: CALCIUM 8.3 mg/dl (8.6-10.4)
[2016-12-10 08:38] LABS: CREATININE, RANDOM URINE 37.8 mg/dL
[2016-12-10] MEDS: Nitroglycerin 0.2 mg/hr Top Patch TD SCH (09:17)
--- NOTE | 2016-12-10 09:49 | CP.PCM.PN ---
Subjective - Date & Time of Evaluation Date of Evaluation: 12/10/16 Time of Evaluation: 07:00 - Subjective Subjective: PGY2 Medicine Note - Dr. Medina's Service Patient seen and examined at bedside. No overnight events per nursing. Patient resting comfortably. Patient received dialysis catheter today, and admits procedure went well. Patient later received dialysis. Denies f/c, headache, blurry vision, chest pain, palpitations, SOB, abdominal pain, n/v, d/c, dysuria , urinary frequency, or any other acute complaints. Objective - Vital Signs/Intake and Output Vital Signs (last 24 hours): Temp Pulse Resp BP Pulse Ox 98.0 F 59 L 20 160/79 H 98 12/10/16 08:04 12/10/16 08:04 12/10/16 08:04 12/10/16 08:04 12/10/16 08:04 Intake and Output: 12/10/16 12/10/16 06:59 18:59 Intake Total 2250 Balance 2250 - Medications Medications: Current Medications Amlodipine Besylate (Norvasc) 10 mg PO DAILY [facility] Last Admin: 12/10/16 09:11 Dose: Not Given Atenolol (Tenormin) 100 mg PO DAILY [facility] Last Admin: 12/10/16 09:07 Dose: Not Given Heparin Sodium (Porcine) (Heparin) 5,000 units SC Q12 [facility] Last Admin: 12/09/16 22:38 Dose: Not Given Hydralazine HCl (Apresoline) 100 mg PO BID [facility] Last Admin: 12/10/16 09:13 Dose: Not Given Hydrochlorothiazide (Hydrodiuril) 25 mg PO DAILY [facility] Last Admin: 12/10/16 09:13 Dose: Not Given Sodium Chloride (Sodium Chloride 0.45%) 1,000 mls @ 75 mls/hr IV .[id number] [facility] Last Admin: 12/10/16 05:30 Dose: 75 mls/hr Losartan Potassium (Cozaar) 100 mg PO DAILY [facility] Last Admin: 12/10/16 09:07 Dose: 100 mg Nitroglycerin (Nitro-Dur 0.2 Mg/Hr Patch) 1 patch TD DAILY [facility] Last Admin: 12/10/16 09:17 Dose: 1 patch Potassium Chloride (K-Dur 20 Meq Er Tab) 40 meq PO ONCE ONE Stop: 12/10/16 11:41 - Labs Labs: 12/10/16 06:23 12/10/16 06:23 - Additional Findings Additional findings: - Constitutional Appears: Non-toxic, No Acute Distress - Head Exam Head Exam: ATRAUMATIC, NORMAL INSPECTION - Eye Exam Eye Exam: EOMI, Normal appearance - ENT Exam ENT Exam: Mucous Membranes Moist, Normal Exam - Neck Exam Neck Exam: Full ROM. absent: Lymphadenopathy - Respiratory Exam Respiratory Exam: Clear to Ausculation Bilateral, NORMAL BREATHING PATTERN. absent: Rhonchi, Wheezes - Cardiovascular Exam Cardiovascular Exam: REGULAR RHYTHM, +S1, +S2 - Right upper chest dressing CDI. - GI/Abdominal Exam GI & Abdominal Exam: Soft, Normal Bowel Sounds. absent: Tenderness - Back Exam Back Exam: absent: CVA tenderness (L), CVA tenderness (R), Paraspinal tenderness - Neurological Exam Neurological Exam: Alert, Awake, Oriented x3 - Psychiatric Exam Psychiatric exam: Normal Affect, Normal Mood - Skin Skin Exam: Dry, Intact, Normal Color, Warm Assessment and Plan - Assessment and Plan (Free Text) Assessment: Stage 5 Kidney Disease 12/10: Patient underwent dialysis catheter placement today, received dialysis shortly after. Tolerated dialysis well. f/u CMP. f/u with Surgery team for possible vein mapping and AVF procedure when stable. 12/09: No improvement in BUN/Cr with IVF. Patient will receive dialysis catheter tomorrow in AM with surgery team. Renal US - Medical renal disease, Small right kidney. see full report EKG - nsr, RBBB, see full report. -Consult nephrology, Dr. Iqbal, f/u recs - will see pt 12/09 in AM. -BUN 77 / Cr 10.1 -NS 0.45 at 75cc/hr Metabolic Acidosis 12/10: Bicarb 16, Sodium Bicarb 650mg 1 tab Q6H. Continue to monitor. 12/09: Bicarb 17, Sodium Bicarb 650mg 1 tab Q6H x3 doses. Will re-evaluate in am after catheter placed. HTN BP 149/86 - stable Norvasc 10mg PO qd Atenolol 100mg PO qd Hydralazine 100mg PO BID HCTZ 25mg PO qd Losartan 100mg PO qd Nitroglycerin 1patch TD daily Anemia 12/10: Hgb 7.8, improved, continue to monitor. 12/09: transfused 1u PRBC - Hgb 6.9, Hct 21.9 - Likely due to poor renal function -type and screen Hx of Lupus - patient is not taking any medications at this time. Lower back pain 12/09: Resolved - likely musculo-skeletal - no CVA tenderness Prophylaxis - renal diet - heparin 5k u SC Q12 All medical management as per Dr. Nir Medina.
[2016-12-10] MEDS ORDERED: Potassium Chloride 20 mEq ER Tab PO ONE (11:40)
[2016-12-10] MEDS ORDERED: HEPARIN-NS 5,000 UNITS/500 ML 5,000 UNIT/500 ML BAG IV ONE (12:14)
[2016-12-10] MEDS ORDERED: ceFAZolin IV 1 gm in Dextrose 0 GM/0 ML BAG IVPB ONE (12:14)
[2016-12-10] MEDS ORDERED: Lidocaine 1% Inj (20ml) ONE (12:15)
[2016-12-10] MEDS ORDERED: Sodium Chloride 0.9% 500 ML IV ONE (12:20)
[2016-12-10] MEDS ORDERED: ceFAZolin IV 2 gm in Dextrose 1 GM/50 ML BAG IVPB ONE (12:24)
[2016-12-10] MEDS ORDERED: Midazolam 2 MG/2 ML VIAL ONE ×2 (12:30→12:37)
[2016-12-10 12:34] LABS: HEPATITIS B SURFACE AG POSITIVE (NEGATIVE)
[2016-12-10 12:35] LABS: HEP B SURFACE AG CONF CONFIRMED POSITIVE
[2016-12-10] MEDS ORDERED: Propofol 10 mg/ml Inj (20 ML) ONE (12:45)
--- NOTE | 2016-12-10 14:08 | RAD ---
HISTORY: s/p permacath COMPARISON: No prior. FINDINGS: LUNGS: No right IJ large-bore dual-lumen PermCath with tip in the SVC /well. There may be some mild bibasilar atelectasis. PLEURA: No definitive pneumothorax. CARDIOVASCULAR: Heart remains enlarged and aorta ectatic OSSEOUS STRUCTURES: No significant abnormalities. VISUALIZED UPPER ABDOMEN: Normal. OTHER FINDINGS: None. IMPRESSION: Status post placement right IJ PermCath with tip in the SVC. No definitive pneumothorax. Suspect mild bibasilar atelectasis. Cardiomegaly.
--- NOTE | 2016-12-10 14:10 | OP ---
PROCEDURE DATE: 12/10/2016 PREOPERATIVE DIAGNOSIS: Renal failure. POSTOPERATIVE DIAGNOSIS: Renal failure. PROCEDURE CARRIED OUT: Perm-A-Cath, right jugular vein with C-arm fluoroscopy and ultrasound-guided puncture. INDICATIONS: Middle-aged woman with renal insufficiency, now requires dialysis. OPERATIVE FINDINGS: Catheter was inserted uneventfully via the jugular vein. PROCEDURE: The patient was given local anesthesia. Using ultrasound guidance, a micropuncture techn ique to the right jugular vein was cannulated. Under fluoroscopic control, the guidewire was advance d centrally, exchanged for a larger stiffer wire and the sheath dilator was passed over this. The ca theter was then positioned with the tip in the superior vena cava, right atrial junction, flushed wit h heparinized saline with good return. It was secured to the skin with a tuft. OPERATION CARRIED OUT: Perm-A-Cath, right jugular vein with C-arm fluoroscopy and ultrasound-guided puncture. Ultrasound vein was 19 mm in diameter with normal compressibility and no evidence of intraluminal thrombosis. Dante Gould Jr., MD cc: 56 TT: 12/10/2016 14:09:20 [email or web address]
--- NOTE | 2016-12-10 14:26 | RAD ---
PROCEDURE: Intraoperative Fluoroscopy. . HISTORY: RENAL FAILURE FINDINGS: Fluoroscopic assistance was provided. Approximately 10.6 seconds of fluoroscopy time utilized. Radiation dose = 1.3 mGy.
[2016-12-10] MEDS ORDERED: Epoetin Alfa 10,000 unit/ml Dialysis IV SCH (15:18)
--- NOTE | 2016-12-10 15:27 | PCM.SURG1 ---
Surgeon's Initial Post Op Note - Surgeon's Notes Surgeon: Dr Gould Press Loader: Dr Merchant PGY2 Type of Anesthesia: General IV Pre-Operative Diagnosis: renal failure Operative Findings: as above Post-Operative Diagnosis: as above Operation Performed: RIJ permacath insertion with ultrasound guidance Specimen/Specimens Removed: none Estimated Blood Loss: EBL {In ML}: 10 Blood Products Given: N/A Drains Used: No Drains Post-Op Condition: Good Date of Surgery/Procedure: 12/10/16 Time of Surgery/Procedure: 15:27
--- NOTE | 2016-12-10 18:13 | CP.PCM.PN ---
Subjective - Date & Time of Evaluation Date of Evaluation: 12/10/16 Time of Evaluation: 10:00 - Subjective Subjective: clinically same Objective - Vital Signs/Intake and Output Vital Signs (last 24 hours): Temp Pulse Resp BP Pulse Ox 98.1 F 96 H 20 163/89 H 94 L 12/10/16 18:01 12/10/16 18:01 12/10/16 18:01 12/10/16 18:06 12/10/16 18:01 Intake and Output: 12/10/16 12/10/16 06:59 18:59 Intake Total 2250 50 Balance 2250 50 - Medications Medications: Current Medications Amlodipine Besylate (Norvasc) 10 mg PO DAILY [facility] Last Admin: 12/10/16 09:11 Dose: Not Given Atenolol (Tenormin) 100 mg PO DAILY [facility] Last Admin: 12/10/16 09:07 Dose: Not Given Epoetin Seymour (Procrit) 10,000 unit IV MWF [facility] Stop: 12/19/16 15:18 Last Admin: 12/10/16 15:51 Dose: 10,000 unit Heparin Sodium (Porcine) (Heparin) 5,000 units SC Q12 [facility] Last Admin: 12/09/16 22:38 Dose: Not Given Heparin Sodium (Porcine) (Heparin) 3,700 units IVP MWF [facility] Last Admin: 12/10/16 15:50 Dose: 3,700 units Hydralazine HCl (Apresoline) 100 mg PO BID [facility] Last Admin: 12/10/16 18:06 Dose: 100 mg Hydrochlorothiazide (Hydrodiuril) 25 mg PO DAILY [facility] Last Admin: 12/10/16 12:11 Dose: 25 mg Sodium Chloride (Sodium Chloride 0.45%) 1,000 mls @ 75 mls/hr IV .[id number] [facility] Last Admin: 12/10/16 05:30 Dose: 75 mls/hr Losartan Potassium (Cozaar) 100 mg PO DAILY [facility] Last Admin: 12/10/16 09:07 Dose: 100 mg Nitroglycerin (Nitro-Dur 0.2 Mg/Hr Patch) 1 patch TD DAILY [facility] Last Admin: 12/10/16 09:17 Dose: 1 patch - Labs Labs: 12/10/16 06:23 12/10/16 06:23
[2016-12-11 08:59] LABS: BASO % 0.4 % (0.0-2.0); EOS # 0.1 K/uL (0.0-0.7); EOS % 0.7 % (0.0-4.0); HEMOGLOBIN 8.3 g/dL (11.0-16.0); LYMPH # 1.5 K/uL (1.0-4.3); LYMPH % 22.2 % (20.0-40.0); MEAN CELL VOLUME 82.9 fL (81.0-99.0); MEAN CORPUSCULAR HEMOGLOBIN 27.2 pg (27.0-31.0); MEAN CORPUSCULAR HGB CONC 32.7 g/dL (33.0-37.0); MEAN PLATELET VOLUME 8.3 fL (7.2-11.7); MONO # 0.9 K/uL (0.0-0.8); NEUT # 4.4 K/uL (1.8-7.0); NEUT % 63.7 % (50.0-75.0); RBC 3.04 Mil/uL (3.80-5.20); RED CELL DISTRIBUTION WIDTH 14.5 % (11.5-14.5); WHITE BLOOD COUNT 6.9 K/uL (4.8-10.8)
--- NOTE | 2016-12-11 09:05 | CP.PCM.PN ---
Subjective - Date & Time of Evaluation Date of Evaluation: 12/11/16 Time of Evaluation: 08:45 - Subjective Subjective: Medicine Note- Dr. Medina's service Patient was seen and examined at bedside. Patient currently reports no acute complaints. Had dialysis yesterday. No events overnight. Objective - Vital Signs/Intake and Output Vital Signs (last 24 hours): Temp Pulse Resp BP Pulse Ox 98.7 F 62 20 157/96 H 95 12/11/16 08:35 12/11/16 08:35 12/11/16 08:35 12/11/16 08:35 12/11/16 08:35 Intake and Output: 12/11/16 12/11/16 06:59 18:59 Intake Total 870 Balance 870 - Medications Medications: Current Medications Amlodipine Besylate (Norvasc) 10 mg PO DAILY [facility] Last Admin: 12/10/16 09:11 Dose: Not Given Atenolol (Tenormin) 100 mg PO DAILY [facility] Last Admin: 12/10/16 09:07 Dose: Not Given Epoetin Seymour (Procrit) 10,000 unit IV [facility] Stop: 12/19/16 15:18 Last Admin: 12/10/16 15:51 Dose: 10,000 unit Heparin Sodium (Porcine) (Heparin) 5,000 units SC Q12 [facility] Last Admin: 12/10/16 21:25 Dose: 5,000 units Heparin Sodium (Porcine) (Heparin) 3,700 units IVP MWF [facility] Last Admin: 12/10/16 15:50 Dose: 3,700 units Hydralazine HCl (Apresoline) 100 mg PO BID [facility] Last Admin: 12/10/16 18:06 Dose: 100 mg Hydrochlorothiazide (Hydrodiuril) 25 mg PO DAILY [facility] Last Admin: 12/10/16 12:11 Dose: 25 mg Sodium Chloride (Sodium Chloride 0.45%) 1,000 mls @ 75 mls/hr IV .[id number] [facility] Last Admin: 12/10/16 18:26 Dose: 75 mls/hr Losartan Potassium (Cozaar) 100 mg PO DAILY [facility] Last Admin: 12/10/16 09:07 Dose: 100 mg Nitroglycerin (Nitro-Dur 0.2 Mg/Hr Patch) 1 patch TD DAILY [facility] Last Admin: 12/10/16 09:17 Dose: 1 patch Sodium Bicarbonate (Sodium Bicarbonate Tab) 650 mg PO Q6 [facility] Last Admin: 12/11/16 05:24 Dose: 650 mg - Labs Labs: 12/10/16 06:23 12/10/16 06:23 - Constitutional Appears: Non-toxic, No Acute Distress - Head Exam Head Exam: ATRAUMATIC, NORMAL INSPECTION, NORMOCEPHALIC - Eye Exam Pupil Exam: NORMAL ACCOMODATION, PERRL - ENT Exam ENT Exam: Mucous Membranes Moist - Respiratory Exam Respiratory Exam: Clear to Ausculation Bilateral, NORMAL BREATHING PATTERN. absent: Prolonged Expiratory Phase, Rales, Rhonchi, Wheezes - Cardiovascular Exam Cardiovascular Exam: REGULAR RHYTHM, +S1, +S2 - GI/Abdominal Exam GI & Abdominal Exam: Soft, Normal Bowel Sounds. absent: Tenderness, Diminished Bowel Sounds, Hernia, Hypoactive Bowel Sounds - Extremities Exam Extremities Exam: Normal Capillary Refill - Neurological Exam Neurological Exam: Alert, Awake, Oriented x3 - Psychiatric Exam Psychiatric exam: Normal Affect, Normal Mood - Skin Skin Exam: Dry, Intact, Normal Color, Warm Assessment and Plan - Assessment and Plan (Free Text) Assessment: Stage 5 Kidney Disease Consult nephrology, Dr. Iqbal Vein mapping ordered- pending 12/10: Patient underwent dialysis catheter placement today, received dialysis shortly after. Tolerated dialysis well. f/u CMP. 12/09: No improvement in BUN/Cr with IVF. Patient will receive dialysis catheter tomorrow in AM with surgery team. Renal US - Medical renal disease, Small right kidney. see full report EKG - nsr, RBBB, see full report. Consult nephrology, Dr. Iqbal -BUN 77 / Cr 10.1 -NS 0.45 at 75cc/hr Metabolic Acidosis 12/10: Bicarb 16, Sodium Bicarb 650mg 1 tab Q6H. Continue to monitor. 12/09: Bicarb 17, Sodium Bicarb 650mg 1 tab Q6H x3 doses. Will re-evaluate in am after catheter placed. HTN Norvasc 10mg PO qd Atenolol 100mg PO qd Hydralazine 100mg PO BID HCTZ 25mg PO qd Losartan 100mg PO qd Nitroglycerin 1patch TD daily Anemia 12/11/16- Hgb 8.3, stable. 12/10: Hgb 7.8, improved, continue to monitor. 12/09: transfused 1u PRBC - Hgb 6.9, Hct 21.9 - Likely due to poor renal function -type and screen Hx of Lupus - patient is not taking any medications at this time. Lower back pain 12/09: Resolved - likely musculo-skeletal - no CVA tenderness Prophylaxis - renal diet - heparin 5k u SC Q12 All medical management as per Dr. Nir Medina. DC Planning: Case management looking for dialysis placement
[2016-12-11 09:13] LABS: ALBUMIN 3.4 g/dL (3.5-5.0)
[2016-12-11 09:16] LABS: ALB/GLOB RATIO 0.9 (1.0-2.1); CALCIUM 8.7 mg/dl (8.6-10.4); MAGNESIUM 1.9 mg/dL (1.6-2.3)
[2016-12-11] MEDS: Nitroglycerin 0.2 mg/hr Top Patch TD SCH (11:31)
--- NOTE | 2016-12-11 15:55 | CP.PCM.PN ---
Subjective - Date & Time of Evaluation Date of Evaluation: 12/11/16 Time of Evaluation: 09:20 - Subjective Subjective: clinically same Objective - Vital Signs/Intake and Output Vital Signs (last 24 hours): Temp Pulse Resp BP Pulse Ox 99 F 67 18 180/100 H 95 12/11/16 14:30 12/11/16 14:30 12/11/16 14:30 12/11/16 14:45 12/11/16 08:35 Intake and Output: 12/11/16 12/11/16 06:59 18:59 Intake Total 870 Balance 870 - Medications Medications: Current Medications Amlodipine Besylate (Norvasc) 10 mg PO DAILY [facility] Last Admin: 12/10/16 09:11 Dose: Not Given Atenolol (Tenormin) 100 mg PO DAILY [facility] Last Admin: 12/11/16 11:31 Dose: 100 mg Epoetin Seymour (Procrit) 10,000 unit IV TTS [facility] Stop: 12/19/16 15:18 Heparin Sodium (Porcine) (Heparin) 5,000 units SC Q12 [facility] Last Admin: 12/11/16 10:00 Dose: Not Given Heparin Sodium (Porcine) (Heparin) 3,700 units IVP MWF [facility] Last Admin: 12/10/16 15:50 Dose: 3,700 units Hydralazine HCl (Apresoline) 100 mg PO BID [facility] Last Admin: 12/11/16 11:30 Dose: 100 mg Hydrochlorothiazide (Hydrodiuril) 25 mg PO DAILY [facility] Last Admin: 12/11/16 11:31 Dose: 25 mg Losartan Potassium (Cozaar) 100 mg PO DAILY [facility] Last Admin: 12/10/16 09:07 Dose: 100 mg Nitroglycerin (Nitro-Dur 0.2 Mg/Hr Patch) 1 patch TD DAILY [facility] Last Admin: 12/11/16 11:31 Dose: 1 patch Sodium Bicarbonate (Sodium Bicarbonate Tab) 650 mg PO Q6 [facility] Last Admin: 12/11/16 13:47 Dose: 650 mg - Labs Labs: 12/11/16 08:45 12/11/16 08:45 - Constitutional Appears: Well - Head Exam Head Exam: ATRAUMATIC, NORMAL INSPECTION, NORMOCEPHALIC - Eye Exam Eye Exam: EOMI, Normal appearance, PERRL Pupil Exam: NORMAL ACCOMODATION, PERRL - ENT Exam ENT Exam: Mucous Membranes Moist, Normal Exam - Neck Exam Neck Exam: Full ROM, Normal Inspection. absent: Lymphadenopathy - Respiratory Exam Respiratory Exam: Decreased Breath Sounds - Cardiovascular Exam Cardiovascular Exam: REGULAR RHYTHM, +S1, +S2 - GI/Abdominal Exam GI & Abdominal Exam: Soft, Diminished Bowel Sounds - Rectal Exam Rectal Exam: Deferred
--- NOTE | 2016-12-11 16:23 | CP.PCM.PN ---
Subjective - Date & Time of Evaluation Date of Evaluation: 12/11/16 Time of Evaluation: 16:22 - Subjective Subjective: Surgery: Dr. Gould Pt seen and examined. Resting comfortably in bed. No complaints. Objective - Vital Signs/Intake and Output Vital Signs (last 24 hours): Temp Pulse Resp BP Pulse Ox 99 F 67 18 180/100 H 95 12/11/16 14:30 12/11/16 14:30 12/11/16 14:30 12/11/16 14:45 12/11/16 08:35 Intake and Output: 12/11/16 12/11/16 06:59 18:59 Intake Total 870 Balance 870 - Medications Medications: Current Medications Amlodipine Besylate (Norvasc) 10 mg PO DAILY [facility] Last Admin: 12/10/16 09:11 Dose: Not Given Atenolol (Tenormin) 100 mg PO DAILY [facility] Last Admin: 12/11/16 11:31 Dose: 100 mg Epoetin Seymour (Procrit) 10,000 unit IV TTS [facility] Stop: 12/19/16 15:18 Heparin Sodium (Porcine) (Heparin) 5,000 units SC Q12 [facility] Last Admin: 12/11/16 10:00 Dose: Not Given Heparin Sodium (Porcine) (Heparin) 3,700 units IVP TTS [facility] Hydralazine HCl (Apresoline) 100 mg PO BID [facility] Last Admin: 12/11/16 11:30 Dose: 100 mg Hydrochlorothiazide (Hydrodiuril) 25 mg PO DAILY [facility] Last Admin: 12/11/16 11:31 Dose: 25 mg Losartan Potassium (Cozaar) 100 mg PO DAILY [facility] Last Admin: 12/10/16 09:07 Dose: 100 mg Nitroglycerin (Nitro-Dur 0.2 Mg/Hr Patch) 1 patch TD DAILY [facility] Last Admin: 12/11/16 11:31 Dose: 1 patch Sodium Bicarbonate (Sodium Bicarbonate Tab) 650 mg PO Q6 [facility] Last Admin: 12/11/16 13:47 Dose: 650 mg - Labs Labs: 12/11/16 08:45 12/11/16 08:45 - Constitutional Appears: Non-toxic, No Acute Distress - Head Exam Head Exam: ATRAUMATIC, NORMOCEPHALIC - Eye Exam Eye Exam: EOMI - ENT Exam ENT Exam: Mucous Membranes Moist, Normal External Ear Exam - Neck Exam Neck Exam: Full ROM Additional comments: R IJ permacath in place, dressing C/D/I, no hematoma - Respiratory Exam Respiratory Exam: NORMAL BREATHING PATTERN. absent: Respiratory Distress - Neurological Exam Neurological Exam: Alert, Awake Assessment and Plan - Assessment and Plan (Free Text) Assessment: 61F w. ESRD, s/p R IJ permacath, POD#1 -will plan for AVF -vein mapping complete -continue w. current medical management -d/w attending Julia PGY2
[2016-12-11] MEDS ORDERED: Aluminum Hydroxide/Magnesium Hydroxide Susp (30 mL) PO ONE (23:01)
[2016-12-12 06:51] LABS: ALBUMIN 3.3 g/dL (3.5-5.0)
[2016-12-12 06:55] LABS: CALCIUM 8.7 mg/dl (8.6-10.4); MAGNESIUM 1.9 mg/dL (1.6-2.3)
[2016-12-12 07:01] LABS: ALB/GLOB RATIO 0.8 (1.0-2.1)
[2016-12-12 07:07] LABS: BASO % 0.5 % (0.0-2.0); EOS # 0.1 K/uL (0.0-0.7); EOS % 1.1 % (0.0-4.0); HEMOGLOBIN 8.1 g/dL (11.0-16.0); LYMPH # 1.6 K/uL (1.0-4.3); LYMPH % 21.1 % (20.0-40.0); MEAN CELL VOLUME 83.2 fL (81.0-99.0); MEAN CORPUSCULAR HEMOGLOBIN 27.2 pg (27.0-31.0); MEAN CORPUSCULAR HGB CONC 32.7 g/dL (33.0-37.0); MEAN PLATELET VOLUME 8.3 fL (7.2-11.7); MONO % 13.6 % (0.0-10.0); NEUT # 4.8 K/uL (1.8-7.0); NEUT % 63.7 % (50.0-75.0); NRBC % 0.1 % (0.0-2.0); RBC 2.96 Mil/uL (3.80-5.20); RED CELL DISTRIBUTION WIDTH 14.9 % (11.5-14.5); WHITE BLOOD COUNT 7.5 K/uL (4.8-10.8)
[2016-12-12] MEDS ORDERED: Potassium Chloride 20 mEq ER Tab PO ONE ×3 (07:43→11:23)
--- NOTE | 2016-12-12 09:56 | CP.PCM.PN ---
Subjective - Date & Time of Evaluation Date of Evaluation: 12/12/16 Time of Evaluation: 09:57 - Subjective Subjective: Medicine Progress Note- Dr. Gregory Medina's Service: Patient seen and examined at bedside this AM. Patient has no complaints this AM. She went for HD yesterday and is scheduled for HD in the AM. No other complaints at this time. Objective - Vital Signs/Intake and Output Vital Signs (last 24 hours): Temp Pulse Resp BP Pulse Ox 99.0 F 62 18 152/81 H 96 12/12/16 07:32 12/12/16 07:32 12/12/16 07:32 12/12/16 07:32 12/12/16 07:32 Intake and Output: 12/12/16 12/12/16 06:59 18:59 Intake Total 480 Balance 480 - Medications Medications: Current Medications Amlodipine Besylate (Norvasc) 10 mg PO DAILY [facility] Last Admin: 12/11/16 10:00 Dose: Not Given Atenolol (Tenormin) 100 mg PO DAILY [facility] Last Admin: 12/11/16 11:31 Dose: 100 mg Epoetin Seymour (Procrit) 10,000 unit IV TTS [facility] Stop: 12/19/16 15:18 Heparin Sodium (Porcine) (Heparin) 5,000 units SC Q12 [facility] Last Admin: 12/11/16 21:19 Dose: 5,000 units Heparin Sodium (Porcine) (Heparin) 3,700 units IVP TTS [facility] Hydralazine HCl (Apresoline) 100 mg PO BID [facility] Last Admin: 12/11/16 18:57 Dose: 100 mg Hydrochlorothiazide (Hydrodiuril) 25 mg PO DAILY [facility] Last Admin: 12/11/16 11:31 Dose: 25 mg Losartan Potassium (Cozaar) 100 mg PO DAILY [facility] Last Admin: 12/11/16 10:00 Dose: Not Given Nitroglycerin (Nitro-Dur 0.2 Mg/Hr Patch) 1 patch TD DAILY [facility] Last Admin: 12/11/16 11:31 Dose: 1 patch Pantoprazole Sodium (Protonix Ec Tab) 40 mg PO DAILY [facility] Sodium Bicarbonate (Sodium Bicarbonate Tab) 650 mg PO Q6 [facility] Last Admin: 12/12/16 05:31 Dose: 650 mg - Labs Labs: 12/12/16 06:22 12/12/16 06:22 - Constitutional Appears: No Acute Distress - Head Exam Head Exam: NORMAL INSPECTION, NORMOCEPHALIC - Eye Exam Eye Exam: EOMI, Normal appearance - ENT Exam ENT Exam: Mucous Membranes Moist - Neck Exam Neck Exam: Full ROM - Respiratory Exam Respiratory Exam: Clear to Ausculation Bilateral, NORMAL BREATHING PATTERN - Cardiovascular Exam Cardiovascular Exam: REGULAR RHYTHM, +S1, +S2, Murmur Additional comments: +right chest portacath - GI/Abdominal Exam GI & Abdominal Exam: Soft. absent: Distended, Tenderness - Extremities Exam Extremities Exam: Full ROM, Normal Inspection - Back Exam Back Exam: NORMAL INSPECTION - Neurological Exam Neurological Exam: Alert, Oriented x3 - Psychiatric Exam Psychiatric exam: Normal Affect, Normal Mood - Skin Skin Exam: Dry, Normal Color, Warm Assessment and Plan - Assessment and Plan (Free Text) Assessment: Stage 5 Kidney Disease Consult nephrology, Dr. Iqbal HD TTS. BUN/Cr: 29/5.6 improved. Vein mapping ordered- pending 12/10: Patient underwent dialysis catheter placement today, received dialysis shortly after. Tolerated dialysis well. 12/09: No improvement in BUN/Cr with IVF. Patient will receive dialysis catheter tomorrow in AM with surgery team. Renal US - Medical renal disease, Small right kidney. see full report EKG - nsr, RBBB, see full report. Consult nephrology, Dr. Iqbal Metabolic Acidosis 12/12: Bicarb 27 12/10: Bicarb 16, Sodium Bicarb 650mg 1 tab Q6H. Continue to monitor. 12/09: Bicarb 17, Sodium Bicarb 650mg 1 tab Q6H x3 doses. Will re-evaluate in am after catheter placed. HTN Norvasc 10mg PO qd Atenolol 100mg PO qd Hydralazine 100mg PO BID HCTZ 25mg PO qd Losartan 100mg PO qd Nitroglycerin 1patch TD daily Anemia Likely due to poor renal function Hgb 6.9, Hct 21.9 on admission. transfused 1u PRBC on 12/09 12/12: hgb 8.1, stable f/u CBC in the Am Hx of Lupus - patient is not taking any medications at this time. Lower back pain 12/12: Resolved - likely musculo-skeletal - no CVA tenderness Prophylaxis - renal diet - heparin 5k u SC Q12 - Protonix 40 mg PO daily All medical management as per Dr. Nir Medina. DC Planning: Case management looking for dialysis placement
--- NOTE | 2016-12-12 10:38 | CP.PCM.PN ---
Subjective - Date & Time of Evaluation Date of Evaluation: 12/12/16 Time of Evaluation: 10:35 - Subjective Subjective: Surgery: Dr. Gould Pt seen and examined. Resting comfortably in bed. No complaints. Had dialysis yesterday. Objective - Vital Signs/Intake and Output Vital Signs (last 24 hours): Temp Pulse Resp BP Pulse Ox 99.0 F 62 18 152/81 H 96 12/12/16 07:32 12/12/16 07:32 12/12/16 07:32 12/12/16 07:32 12/12/16 07:32 Intake and Output: 12/12/16 12/12/16 06:59 18:59 Intake Total 480 Balance 480 - Medications Medications: Current Medications Amlodipine Besylate (Norvasc) 10 mg PO DAILY [facility] Last Admin: 12/11/16 10:00 Dose: Not Given Atenolol (Tenormin) 100 mg PO DAILY [facility] Last Admin: 12/11/16 11:31 Dose: 100 mg Epoetin Seymour (Procrit) 10,000 unit IV TTS [facility] Stop: 12/19/16 15:18 Heparin Sodium (Porcine) (Heparin) 5,000 units SC Q12 [facility] Last Admin: 12/11/16 21:19 Dose: 5,000 units Heparin Sodium (Porcine) (Heparin) 3,700 units IVP TTS [facility] Hydralazine HCl (Apresoline) 100 mg PO BID [facility] Last Admin: 12/11/16 18:57 Dose: 100 mg Hydrochlorothiazide (Hydrodiuril) 25 mg PO DAILY [facility] Last Admin: 12/11/16 11:31 Dose: 25 mg Losartan Potassium (Cozaar) 100 mg PO DAILY [facility] Last Admin: 12/11/16 10:00 Dose: Not Given Nitroglycerin (Nitro-Dur 0.2 Mg/Hr Patch) 1 patch TD DAILY [facility] Last Admin: 12/11/16 11:31 Dose: 1 patch Pantoprazole Sodium (Protonix Ec Tab) 40 mg PO DAILY [facility] Sodium Bicarbonate (Sodium Bicarbonate Tab) 650 mg PO Q6 [facility] Last Admin: 12/12/16 05:31 Dose: 650 mg - Labs Labs: 12/12/16 06:22 12/12/16 06:22 - Constitutional Appears: Non-toxic, No Acute Distress - Head Exam Head Exam: ATRAUMATIC, NORMOCEPHALIC - Eye Exam Eye Exam: EOMI - ENT Exam ENT Exam: Mucous Membranes Moist - Neck Exam Neck Exam: Full ROM Additional comments: R IJ permacath in place, dressing C/D/I - Respiratory Exam Respiratory Exam: NORMAL BREATHING PATTERN. absent: Accessory Muscle Use, Respiratory Distress - Neurological Exam Neurological Exam: Alert, Awake, Oriented x3 Assessment and Plan - Assessment and Plan (Free Text) Assessment: 61F w. ESRD, s/p R IJ permacath, POD#2 -Tentative OR Thursday for AVF -medically optimize pt -d/w attending Zemaitis PGY2
[2016-12-12] MEDS: Pantoprazole 40 mg EC Tab PO SCH (11:13)
[2016-12-12] MEDS: Nitroglycerin 0.2 mg/hr Top Patch TD SCH (11:14)
--- NOTE | 2016-12-12 17:51 | CP.PCM.PN ---
Subjective - Date & Time of Evaluation Date of Evaluation: 12/12/16 Time of Evaluation: 09:00 - Subjective Subjective: clinically same Objective - Vital Signs/Intake and Output Vital Signs (last 24 hours): Temp Pulse Resp BP Pulse Ox 99.0 F 62 18 152/81 H 96 12/12/16 07:32 12/12/16 07:32 12/12/16 07:32 12/12/16 07:32 12/12/16 07:32 Intake and Output: 12/12/16 12/12/16 06:59 18:59 Intake Total 480 Balance 480 - Medications Medications: Current Medications Amlodipine Besylate (Norvasc) 10 mg PO DAILY [facility] Last Admin: 12/12/16 14:06 Dose: 10 mg Atenolol (Tenormin) 100 mg PO DAILY [facility] Last Admin: 12/12/16 11:13 Dose: 100 mg Epoetin Seymour (Procrit) 10,000 unit IV TTS [facility] Stop: 12/19/16 15:18 Heparin Sodium (Porcine) (Heparin) 5,000 units SC Q12 [facility] Last Admin: 12/12/16 11:14 Dose: 5,000 units Heparin Sodium (Porcine) (Heparin) 3,700 units IVP TTS [facility] Hydralazine HCl (Apresoline) 100 mg PO BID [facility] Last Admin: 12/12/16 17:49 Dose: 100 mg Hydrochlorothiazide (Hydrodiuril) 25 mg PO DAILY [facility] Last Admin: 12/12/16 14:07 Dose: 25 mg Losartan Potassium (Cozaar) 100 mg PO DAILY [facility] Last Admin: 12/12/16 14:06 Dose: 100 mg Nitroglycerin (Nitro-Dur 0.2 Mg/Hr Patch) 1 patch TD DAILY [facility] Last Admin: 12/12/16 11:14 Dose: 1 patch Pantoprazole Sodium (Protonix Ec Tab) 40 mg PO DAILY [facility] Last Admin: 12/12/16 11:13 Dose: 40 mg Sodium Bicarbonate (Sodium Bicarbonate Tab) 650 mg PO Q6 [facility] Last Admin: 12/12/16 17:49 Dose: 650 mg - Labs Labs: 12/12/16 06:22 12/12/16 06:22 - Constitutional Appears: Well - Head Exam Head Exam: ATRAUMATIC, NORMAL INSPECTION, NORMOCEPHALIC - Eye Exam Eye Exam: EOMI, Normal appearance, PERRL Pupil Exam: NORMAL ACCOMODATION, PERRL - ENT Exam ENT Exam: Mucous Membranes Moist, Normal Exam - Respiratory Exam Respiratory Exam: Decreased Breath Sounds - Cardiovascular Exam Cardiovascular Exam: REGULAR RHYTHM, +S1, +S2 - GI/Abdominal Exam GI & Abdominal Exam: Soft, Diminished Bowel Sounds - Rectal Exam Rectal Exam: Deferred
[2016-12-13 09:01] LABS: BASO % 0.3 % (0.0-2.0); EOS # 0.1 K/uL (0.0-0.7); EOS % 1.3 % (0.0-4.0); HEMOGLOBIN 7.9 g/dL (11.0-16.0); LYMPH # 1.6 K/uL (1.0-4.3); LYMPH % 22.2 % (20.0-40.0); MEAN CELL VOLUME 84.2 fL (81.0-99.0); MEAN CORPUSCULAR HEMOGLOBIN 26.6 pg (27.0-31.0); MEAN CORPUSCULAR HGB CONC 31.6 g/dL (33.0-37.0); MEAN PLATELET VOLUME 8.2 fL (7.2-11.7); MONO % 14.2 % (0.0-10.0); NEUT # 4.5 K/uL (1.8-7.0); RBC 2.96 Mil/uL (3.80-5.20); RED CELL DISTRIBUTION WIDTH 14.8 % (11.5-14.5); WHITE BLOOD COUNT 7.2 K/uL (4.8-10.8)
[2016-12-13 09:14] LABS: ALBUMIN 3.3 g/dL (3.5-5.0)
[2016-12-13 09:16] LABS: ALB/GLOB RATIO 0.9 (1.0-2.1)
--- NOTE | 2016-12-13 10:14 | CP.PCM.PN ---
Subjective - Date & Time of Evaluation Date of Evaluation: 12/13/16 Time of Evaluation: 09:00 - Subjective Subjective: clinically same Objective - Vital Signs/Intake and Output Vital Signs (last 24 hours): Temp Pulse Resp BP Pulse Ox 98.2 F 61 20 155/86 H 97 12/13/16 07:50 12/13/16 07:50 12/13/16 07:50 12/13/16 07:50 12/13/16 07:50 - Medications Medications: Current Medications Amlodipine Besylate (Norvasc) 10 mg PO DAILY [facility] Last Admin: 12/12/16 14:06 Dose: 10 mg Atenolol (Tenormin) 100 mg PO DAILY [facility] Last Admin: 12/12/16 11:13 Dose: 100 mg Epoetin Seymour (Procrit) 10,000 unit IV TTS [facility] Stop: 12/19/16 15:18 Heparin Sodium (Porcine) (Heparin) 5,000 units SC Q12 [facility] Last Admin: 12/12/16 22:26 Dose: 5,000 units Heparin Sodium (Porcine) (Heparin) 3,700 units IVP TTS [facility] Hydralazine HCl (Apresoline) 100 mg PO BID [facility] Last Admin: 12/12/16 17:49 Dose: 100 mg Hydrochlorothiazide (Hydrodiuril) 25 mg PO DAILY [facility] Last Admin: 12/12/16 14:07 Dose: 25 mg Losartan Potassium (Cozaar) 100 mg PO DAILY [facility] Last Admin: 12/12/16 14:06 Dose: 100 mg Nitroglycerin (Nitro-Dur 0.2 Mg/Hr Patch) 1 patch TD DAILY [facility] Last Admin: 12/12/16 11:14 Dose: 1 patch Pantoprazole Sodium (Protonix Ec Tab) 40 mg PO DAILY [facility] Last Admin: 12/12/16 11:13 Dose: 40 mg Sodium Bicarbonate (Sodium Bicarbonate Tab) 650 mg PO Q6 [facility] Last Admin: 12/13/16 05:07 Dose: 650 mg - Labs Labs: 12/13/16 08:51 12/13/16 08:51 - Constitutional Appears: Well - Head Exam Head Exam: ATRAUMATIC, NORMAL INSPECTION, NORMOCEPHALIC - Eye Exam Eye Exam: EOMI, Normal appearance, PERRL Pupil Exam: NORMAL ACCOMODATION, PERRL - ENT Exam ENT Exam: Mucous Membranes Moist, Normal Exam - Neck Exam Neck Exam: Full ROM, Normal Inspection. absent: Lymphadenopathy - Respiratory Exam Respiratory Exam: Decreased Breath Sounds - Cardiovascular Exam Cardiovascular Exam: REGULAR RHYTHM, +S1, +S2 - GI/Abdominal Exam GI & Abdominal Exam: Soft, Diminished Bowel Sounds - Rectal Exam Rectal Exam: Deferred
--- NOTE | 2016-12-13 10:41 | VASCLAB ---
PROCEDURE: Upper Extremity Venous Duplex Exam HISTORY: assessment for future fistula PRIORS: None. TECHNIQUE: Bilateral upper extremity, internal jugular, subclavian, axillary, brachial, ulnar, radial, basilic and upper cephalic veins were evaluated. Flow was assessed with color Doppler, compressibility, assessment of phasic flow and augmentation response. Report prepared by YAIR Mosley, RVT FINDINGS: RIGHT: 1. Internal Jugular Vein: Compressibility - Fully compressible: Thrombus - None : Flow - Phasic 2. Subclavian Vein:Compressibility - Fully compressible: Thrombus - None : Flow - Phasic 3. Axillary Vein: Compressibility - Fully compressible: Thrombus - None 4. Brachial Vein: Compressibility - Fully compressible: Thrombus - None 5. Ulnar Vein:Compressibility - Fully compressible: Thrombus - None 6. Radial Vein:Compressibility - Fully compressible: Thrombus - None 7. Cephalic Vein: Compressibility - Fully compressible: thrombus - None 7.1. Upper Arm: Proximal Diameter: 0.59cm. Mid Diameter: 0.55cm. Distal Diameter: 0.62cm. Antecubital Fossa Diameter: 0.65cm 7.2. Forearm: Proximal Diameter: 0.52cm. Mid Diameter:0.46cm. Distal Diameter: 0.46cm 8. Basilic Vein:Compressibility - Fully compressible: thrombus - None 8.1. Upper Arm:Proximal Diameter: 0.70cm. Mid Diameter: 0.65cm. Distal Diameter: 0.53cm. Antecubital Fossa Diameter: 0.46cm 8.2. Forearm: Proximal Diameter: 0.36cm. Mid Diameter:0.24cm. Distal Diameter: 0.18cm. LEFT: 1. Internal Jugular Vein: Compressibility - Fully compressible: Thrombus - None : Flow - Phasic 2. Subclavian Vein:Compressibility - Fully compressible: Thrombus - None : Flow - Phasic 3. Axillary Vein: Compressibility - Fully compressible: Thrombus - None 4. Brachial Vein: Compressibility - Fully compressible: Thrombus - None 5. Ulnar Vein:Compressibility - Fully compressible: Thrombus - None 6. Radial Vein:Compressibility - Fully compressible: Thrombus - None 7. Cephalic Vein: Compressibility - Fully compressible: thrombus - None 7.1. Upper Arm: Proximal Diameter: 0.63cm. Mid Diameter: 0.58cm. Distal Diameter: 0.46cm. Antecubital Fossa Diameter: 0.61cm 7.2. Forearm: Proximal Diameter: 0.53cm. Mid Diameter:0.50cm. Distal Diameter: 0.28cm 8. Basilic Vein:Compressibility - Fully compressible: thrombus - None 8.1. Upper Arm:Proximal Diameter: 0.58cm. Mid Diameter: 0.57cm. Distal Diameter: 0.64cm. Antecubital Fossa Diameter: 0.57cm 8.2. Forearm: Proximal Diameter: 0.40cm. Mid Diameter:0.27cm. Distal Diameter: 0.40cm. OTHER FINDINGS: Right: None. Left: None. IMPRESSION: Right: Diameter measurements of the right cephalic vein is measured between 0.46 cm and 0.65 cm and basilic vein is measured between 0.18 cm and 0.70 cm. Left: Diameter measurements of the left cephalic vein is measured between 0.28 cm and 0.63 cm and basilic vein is measured between 0.27cm and 0.64cm.
[2016-12-13] MEDS: Nitroglycerin 0.2 mg/hr Top Patch TD SCH (11:05)
[2016-12-13] MEDS: Pantoprazole 40 mg EC Tab PO SCH (11:05)
--- NOTE | 2016-12-13 11:53 | CP.PCM.PN ---
Subjective - Date & Time of Evaluation Date of Evaluation: 12/13/16 Time of Evaluation: 11:53 - Subjective Subjective: plan thursday Objective - Vital Signs/Intake and Output Vital Signs (last 24 hours): Temp Pulse Resp BP Pulse Ox 98.2 F 61 20 155/86 H 97 12/13/16 07:50 12/13/16 07:50 12/13/16 07:50 12/13/16 07:50 12/13/16 07:50 - Medications Medications: Current Medications Amlodipine Besylate (Norvasc) 10 mg PO DAILY [facility] Last Admin: 12/12/16 14:06 Dose: 10 mg Atenolol (Tenormin) 100 mg PO DAILY [facility] Last Admin: 12/13/16 11:04 Dose: 100 mg Epoetin Seymour (Procrit) 10,000 unit IV TTS [facility] Stop: 12/19/16 15:18 Heparin Sodium (Porcine) (Heparin) 5,000 units SC Q12 [facility] Last Admin: 12/12/16 22:26 Dose: 5,000 units Heparin Sodium (Porcine) (Heparin) 3,700 units IVP TTS [facility] Hydralazine HCl (Apresoline) 100 mg PO BID [facility] Last Admin: 12/13/16 11:33 Dose: Not Given Hydrochlorothiazide (Hydrodiuril) 25 mg PO DAILY [facility] Last Admin: 12/12/16 14:07 Dose: 25 mg Losartan Potassium (Cozaar) 100 mg PO DAILY [facility] Last Admin: 12/12/16 14:06 Dose: 100 mg Nitroglycerin (Nitro-Dur 0.2 Mg/Hr Patch) 1 patch TD DAILY [facility] Last Admin: 12/13/16 11:05 Dose: 1 patch Pantoprazole Sodium (Protonix Ec Tab) 40 mg PO DAILY [facility] Last Admin: 12/13/16 11:05 Dose: 40 mg Sodium Bicarbonate (Sodium Bicarbonate Tab) 650 mg PO Q6 [facility] Last Admin: 12/13/16 05:07 Dose: 650 mg - Labs Labs: 12/13/16 08:51 12/13/16 08:51
[2016-12-13] MEDS: Epoetin Alfa 10,000 unit/ml Dialysis IV SCH (19:55)
[2016-12-14 08:40] LABS: BASO % 0.7 % (0.0-2.0); EOS # 0.1 K/uL (0.0-0.7); HEMOGLOBIN 8.2 g/dL (11.0-16.0); LYMPH # 1.5 K/uL (1.0-4.3); MEAN CELL VOLUME 84.2 fL (81.0-99.0); MEAN CORPUSCULAR HEMOGLOBIN 27.5 pg (27.0-31.0); MEAN CORPUSCULAR HGB CONC 32.7 g/dL (33.0-37.0); MEAN PLATELET VOLUME 7.9 fL (7.2-11.7); MONO # 0.9 K/uL (0.0-0.8); NEUT # 4.3 K/uL (1.8-7.0); NEUT % 63.3 % (50.0-75.0); RBC 2.99 Mil/uL (3.80-5.20); RED CELL DISTRIBUTION WIDTH 14.4 % (11.5-14.5); WHITE BLOOD COUNT 6.8 K/uL (4.8-10.8)
[2016-12-14 08:53] LABS: ALBUMIN 3.4 g/dL (3.5-5.0)
[2016-12-14 08:57] LABS: ALT/SGPT < 6 U/L (9-52); AST/SGOT 21 U/L (14-36); BLOOD UREA NITROGEN 26 mg/dL (7-17); CALCIUM 8.9 mg/dl (8.6-10.4); GFR AFRICAN-AMERICAN 10; GFR NON-AFRICAN AMERICAN 8
[2016-12-14] MEDS: Nitroglycerin 0.2 mg/hr Top Patch TD SCH (10:16)
[2016-12-14] MEDS: Pantoprazole 40 mg EC Tab PO SCH (10:20)
--- NOTE | 2016-12-14 15:24 | CP.PCM.PN ---
Subjective - Date & Time of Evaluation Date of Evaluation: 12/14/16 Objective - Vital Signs/Intake and Output Vital Signs (last 24 hours): Temp Pulse Resp BP Pulse Ox 98.4 F 71 18 155/90 H 96 12/14/16 08:00 12/14/16 09:24 12/14/16 08:00 12/14/16 08:00 12/14/16 08:00 - Medications Medications: Current Medications Amlodipine Besylate (Norvasc) 10 mg PO DAILY [facility] Last Admin: 12/14/16 10:20 Dose: 10 mg Atenolol (Tenormin) 100 mg PO DAILY [facility] Last Admin: 12/14/16 10:20 Dose: 100 mg Epoetin Seymour (Procrit) 10,000 unit IV TTS [facility] Stop: 12/19/16 15:18 Last Admin: 12/13/16 19:55 Dose: 10,000 unit Heparin Sodium (Porcine) (Heparin) 3,700 units IVP TTS [facility] Last Admin: 12/13/16 19:55 Dose: 3,700 units Hydralazine HCl (Apresoline) 100 mg PO BID [facility] Last Admin: 12/14/16 10:20 Dose: 100 mg Hydrochlorothiazide (Hydrodiuril) 25 mg PO DAILY [facility] Last Admin: 12/14/16 10:19 Dose: 25 mg Losartan Potassium (Cozaar) 100 mg PO DAILY [facility] Last Admin: 12/14/16 10:19 Dose: 100 mg Nitroglycerin (Nitro-Dur 0.2 Mg/Hr Patch) 1 patch TD DAILY [facility] Last Admin: 12/14/16 10:16 Dose: 1 patch Pantoprazole Sodium (Protonix Ec Tab) 40 mg PO DAILY [facility] Last Admin: 12/14/16 10:20 Dose: 40 mg Sodium Bicarbonate (Sodium Bicarbonate Tab) 650 mg PO Q6 [facility] Last Admin: 12/14/16 13:11 Dose: 650 mg - Labs Labs: 12/14/16 08:20 12/14/16 08:20 Assessment and Plan (1) ESRD (end stage renal disease) Status: Acute (2) ESRD (end stage renal disease) on dialysis Status: Acute (3) Hypertension Status: Acute (4) Renal failure, acute Status: Acute (5) Allergic urticaria Status: Acute (6) Hives Status: Acute (7) Low back pain Status: Acute (8) Uncontrolled hypertension Status: Acute - Assessment and Plan (Free Text) Plan: needs magda placement avf surg consult coti same spoketo meche foster ordered
[2016-12-15 07:57] LABS: BASO % 0.4 % (0.0-2.0); EOS # 0.1 K/uL (0.0-0.7); HEMOGLOBIN 7.9 g/dL (11.0-16.0); LYMPH # 1.6 K/uL (1.0-4.3); LYMPH % 26.1 % (20.0-40.0); MEAN CELL VOLUME 84.2 fL (81.0-99.0); MEAN CORPUSCULAR HEMOGLOBIN 26.9 pg (27.0-31.0); MEAN PLATELET VOLUME 7.5 fL (7.2-11.7); MONO # 0.9 K/uL (0.0-0.8); MONO % 14.1 % (0.0-10.0); NEUT # 3.5 K/uL (1.8-7.0); NEUT % 57.4 % (50.0-75.0); RBC 2.94 Mil/uL (3.80-5.20); RED CELL DISTRIBUTION WIDTH 14.6 % (11.5-14.5); WHITE BLOOD COUNT 6.1 K/uL (4.8-10.8)
[2016-12-15 08:15] LABS: ALBUMIN 3.4 g/dL (3.5-5.0)
[2016-12-15 08:18] LABS: ALB/GLOB RATIO 0.9 (1.0-2.1); CALCIUM 9.1 mg/dl (8.6-10.4)
--- NOTE | 2016-12-15 09:16 | CP.PCM.PN ---
Subjective - Date & Time of Evaluation Date of Evaluation: 12/15/16 Time of Evaluation: 09:20 - Subjective Subjective: clinically same Objective - Vital Signs/Intake and Output Vital Signs (last 24 hours): Temp Pulse Resp BP Pulse Ox 98 F 62 20 157/90 H 95 12/15/16 08:23 12/15/16 08:23 12/15/16 08:23 12/15/16 08:23 12/15/16 08:23 - Medications Medications: Current Medications Amlodipine Besylate (Norvasc) 10 mg PO DAILY [facility] Last Admin: 12/14/16 10:20 Dose: 10 mg Atenolol (Tenormin) 100 mg PO DAILY [facility] Last Admin: 12/14/16 10:20 Dose: 100 mg Epoetin Seymour (Procrit) 10,000 unit IV TTS [facility] Stop: 12/19/16 15:18 Last Admin: 12/13/16 19:55 Dose: 10,000 unit Hydralazine HCl (Apresoline) 100 mg PO BID [facility] Last Admin: 12/14/16 17:41 Dose: 100 mg Hydrochlorothiazide (Hydrodiuril) 25 mg PO DAILY [facility] Last Admin: 12/14/16 10:19 Dose: 25 mg Losartan Potassium (Cozaar) 100 mg PO DAILY [facility] Last Admin: 12/14/16 10:19 Dose: 100 mg Nitroglycerin (Nitro-Dur 0.2 Mg/Hr Patch) 1 patch TD DAILY [facility] Last Admin: 12/14/16 10:16 Dose: 1 patch Pantoprazole Sodium (Protonix Ec Tab) 40 mg PO DAILY [facility] Last Admin: 12/14/16 10:20 Dose: 40 mg Sodium Bicarbonate (Sodium Bicarbonate Tab) 650 mg PO Q6 [facility] Last Admin: 12/15/16 05:28 Dose: 650 mg - Labs Labs: 12/15/16 07:51 12/15/16 07:51 - Constitutional Appears: Well - Head Exam Head Exam: ATRAUMATIC, NORMAL INSPECTION, NORMOCEPHALIC - Eye Exam Eye Exam: EOMI, Normal appearance, PERRL Pupil Exam: NORMAL ACCOMODATION, PERRL - ENT Exam ENT Exam: Mucous Membranes Moist, Normal Exam - Neck Exam Neck Exam: Full ROM, Normal Inspection. absent: Lymphadenopathy - Respiratory Exam Respiratory Exam: Decreased Breath Sounds - Cardiovascular Exam Cardiovascular Exam: REGULAR RHYTHM, +S1, +S2 - GI/Abdominal Exam GI & Abdominal Exam: Soft, Diminished Bowel Sounds - Rectal Exam Rectal Exam: Deferred Assessment and Plan (1) ESRD (end stage renal disease) Status: Acute (2) ESRD (end stage renal disease) on dialysis Status: Acute (3) Hypertension Status: Acute (4) Renal failure, acute Status: Acute (5) Allergic urticaria Status: Acute (6) Hives Status: Acute (7) Low back pain Status: Acute (8) Uncontrolled hypertension Status: Acute
--- NOTE | 2016-12-15 09:56 | CP.PCM.PN ---
Subjective - Date & Time of Evaluation Date of Evaluation: 12/15/16 Time of Evaluation: 07:30 - Subjective Subjective: Medicine Progress Note- Dr. Gregory Medina's Service: Patient seen and examined at bedside this AM. Patient has no complaints this AM. She is on HD TTS. No other complaints at this time. Patient is for OR tomorrow for AVF placement. Objective - Vital Signs/Intake and Output Vital Signs (last 24 hours): Temp Pulse Resp BP Pulse Ox 98 F 62 20 157/90 H 95 12/15/16 08:23 12/15/16 08:23 12/15/16 08:23 12/15/16 08:23 12/15/16 08:23 - Medications Medications: Current Medications Amlodipine Besylate (Norvasc) 10 mg PO DAILY [facility] Last Admin: 12/14/16 10:20 Dose: 10 mg Atenolol (Tenormin) 100 mg PO DAILY [facility] Last Admin: 12/14/16 10:20 Dose: 100 mg Epoetin Seymour (Procrit) 10,000 unit IV TTS [facility] Stop: 12/19/16 15:18 Last Admin: 12/13/16 19:55 Dose: 10,000 unit Hydralazine HCl (Apresoline) 100 mg PO BID [facility] Last Admin: 12/14/16 17:41 Dose: 100 mg Hydrochlorothiazide (Hydrodiuril) 25 mg PO DAILY [facility] Last Admin: 12/14/16 10:19 Dose: 25 mg Losartan Potassium (Cozaar) 100 mg PO DAILY [facility] Last Admin: 12/14/16 10:19 Dose: 100 mg Nitroglycerin (Nitro-Dur 0.2 Mg/Hr Patch) 1 patch TD DAILY [facility] Last Admin: 12/14/16 10:16 Dose: 1 patch Pantoprazole Sodium (Protonix Ec Tab) 40 mg PO DAILY [facility] Last Admin: 12/14/16 10:20 Dose: 40 mg Sodium Bicarbonate (Sodium Bicarbonate Tab) 650 mg PO Q6 [facility] Last Admin: 12/15/16 05:28 Dose: 650 mg - Labs Labs: 12/15/16 07:51 12/15/16 07:51 - Additional Findings Additional findings: - Constitutional Appears: No Acute Distress - Head Exam Head Exam: NORMAL INSPECTION, NORMOCEPHALIC - Eye Exam Eye Exam: EOMI, Normal appearance - ENT Exam ENT Exam: Mucous Membranes Moist - Neck Exam Neck Exam: Full ROM - Respiratory Exam Respiratory Exam: Clear to Ausculation Bilateral, NORMAL BREATHING PATTERN - Cardiovascular Exam Cardiovascular Exam: REGULAR RHYTHM, +S1, +S2, Murmur Additional comments: +right chest portacath - GI/Abdominal Exam GI & Abdominal Exam: Soft. absent: Distended, Tenderness - Extremities Exam Extremities Exam: Full ROM, Normal Inspection - Back Exam Back Exam: NORMAL INSPECTION - Neurological Exam Neurological Exam: Alert, Oriented x3 - Psychiatric Exam Psychiatric exam: Normal Affect, Normal Mood - Skin Skin Exam: Dry, Normal Color, Warm Assessment and Plan - Assessment and Plan (Free Text) Assessment: Stage 5 Kidney Disease 12/15: OR tomorrow for AVF with Dr. Gould. NPO at midnight. Consider transfusing PRBC tomorrow during dialysis. Cardio Consult, Dr. Avilez - pre-op clearance. 12/10: Patient underwent dialysis catheter placement today, received dialysis shortly after. Tolerated dialysis well. 12/09: No improvement in BUN/Cr with IVF. Patient will receive dialysis catheter tomorrow in AM with surgery team. Renal US - Medical renal disease, Small right kidney. see full report EKG - nsr, RBBB, see full report. -Consult nephrology, Dr. Iqbal -> HD TTS. Monitor BUN/Cr. -Consult Surgery, Dr. Gould -> Vein mapping ordered Metabolic Acidosis 12/12: Bicarb 27 12/10: Bicarb 16, Sodium Bicarb 650mg 1 tab Q6H. Continue to monitor. 12/09: Bicarb 17, Sodium Bicarb 650mg 1 tab Q6H x3 doses. Will re-evaluate in am after catheter placed. HTN Norvasc 10mg PO qd Atenolol 100mg PO qd Hydralazine 100mg PO BID HCTZ 25mg PO qd Losartan 100mg PO qd Nitroglycerin 1patch TD daily Anemia Likely due to poor renal function Hgb 6.9, Hct 21.9 on admission. transfused 1u PRBC on 12/09 12/12: hgb 8.1, stable f/u CBC in the Am Hx of Lupus - patient is not taking any medications at this time. Lower back pain 12/12: Resolved - likely musculo-skeletal - no CVA tenderness Prophylaxis - renal diet - heparin 5k u SC Q12 - Protonix 40 mg PO daily All medical management as per Dr. Nir Medina. DC Planning: Case management looking for dialysis placement
[2016-12-15] MEDS: Pantoprazole 40 mg EC Tab PO SCH (10:46)
[2016-12-15] MEDS: Nitroglycerin 0.2 mg/hr Top Patch TD SCH (10:46)
--- NOTE | 2016-12-15 14:24 | CP.PCM.PN ---
Subjective - Date & Time of Evaluation Date of Evaluation: 12/15/16 Time of Evaluation: 14:21 - Subjective Subjective: Surgery: Dr. Gould Pt seen and examined. Resting comfortably in bed. No complaints. Objective - Vital Signs/Intake and Output Vital Signs (last 24 hours): Temp Pulse Resp BP Pulse Ox 98 F 62 20 157/90 H 95 12/15/16 08:23 12/15/16 08:23 12/15/16 08:23 12/15/16 08:23 12/15/16 08:23 - Medications Medications: Current Medications Amlodipine Besylate (Norvasc) 10 mg PO DAILY [facility] Last Admin: 12/15/16 10:47 Dose: 10 mg Atenolol (Tenormin) 100 mg PO DAILY [facility] Last Admin: 12/15/16 10:46 Dose: 100 mg Epoetin Seymour (Procrit) 10,000 unit IV TTS [facility] Stop: 12/19/16 15:18 Last Admin: 12/13/16 19:55 Dose: 10,000 unit Hydralazine HCl (Apresoline) 100 mg PO BID [facility] Last Admin: 12/15/16 10:46 Dose: 100 mg Hydrochlorothiazide (Hydrodiuril) 25 mg PO DAILY [facility] Last Admin: 12/15/16 10:47 Dose: 25 mg Losartan Potassium (Cozaar) 100 mg PO DAILY [facility] Last Admin: 12/15/16 13:19 Dose: 100 mg Nitroglycerin (Nitro-Dur 0.2 Mg/Hr Patch) 1 patch TD DAILY [facility] Last Admin: 12/15/16 10:46 Dose: 1 patch Pantoprazole Sodium (Protonix Ec Tab) 40 mg PO DAILY [facility] Last Admin: 12/15/16 10:46 Dose: 40 mg Sodium Bicarbonate (Sodium Bicarbonate Tab) 650 mg PO Q6 [facility] Last Admin: 12/15/16 13:19 Dose: 650 mg - Labs Labs: 12/15/16 07:51 12/15/16 07:51 - Constitutional Appears: Non-toxic, No Acute Distress - Head Exam Head Exam: ATRAUMATIC, NORMAL INSPECTION - Eye Exam Eye Exam: EOMI - ENT Exam ENT Exam: Mucous Membranes Moist - Neck Exam Neck Exam: Full ROM Additional comments: R side permacath in place - Respiratory Exam Respiratory Exam: NORMAL BREATHING PATTERN. absent: Accessory Muscle Use, Respiratory Distress - GI/Abdominal Exam GI & Abdominal Exam: Soft. absent: Tenderness - Extremities Exam Extremities Exam: absent: Calf Tenderness, Pedal Edema Assessment and Plan - Assessment and Plan (Free Text) Assessment: 61F w. ESRD -OR tomorrow for AVF -NPO at midnight -consider transfusing PRBC tomorrow during dialysis -d/w attending Julia PGY2
--- NOTE | 2016-12-15 16:11 | CP.PCM.CON ---
History of Present Illness - History of Present Illness History of Present Illness: 61 year old lady with HTN Lupus, HBV infection, now admitted with progressive renal failure started on HD did well, for fistula placement. No CP or SOB, no prior DC, EKG NSR right bundle branch block. hx of uneventful prior surgery on breast cyst, acceptable risk for cardiac complication from surgery, f/u with ECHO. Review of Systems - Constitutional Constitutional: Weakness - EENT Eyes: absent: Discharge Ears: absent: Ear Discharge, Dizziness Nose/Mouth/Throat: absent: Epistaxis - Cardiovascular Cardiovascular: absent: Acrocyanosis, Chest Pain, Diaphoresis, Leg Edema, Palpitations, Syncope - Respiratory Respiratory: absent: Cough, Dyspnea, Hemoptysis - Gastrointestinal Gastrointestinal: absent: Abdominal Pain, Diarrhea, Vomiting - Genitourinary Genitourinary: absent: Change in Urinary Stream Past Patient History - Past Medical History & Family History Past Medical History?: Yes - Past Social History Smoking Status: Never Smoked - CARDIAC Hx Cardiac Disorders: Yes Hx Angina: No Hx Atrial Fibrillation: No Hx Cardia Arrhythmia: No Hx Circulatory Problems: No Hx Congestive Heart Failure: No Hx Heart Attack: No Hx Heart Murmur: No Hx Heart Transplant: No Hx Hypercholesterolemia: No Hx Hypertension: Yes Hx Hypotension: No Hx Internal Defibrillator: No Hx Mitral Valve Prolapse: No Hx Pacemaker: No - PULMONARY Hx Respiratory Disorders: No - NEUROLOGICAL Hx Neurological Disorder: No - HEENT Hx HEENT Problems: No - RENAL Hx Chronic Kidney Disease: Yes Hx Dialysis: No Hx Kidney Stones: No Hx Neurogenic Bladder: No Hx Pyelonephritis: No Hx Renal (Kidney) Cancer: No Hx Renal Failure: No - ENDOCRINE/METABOLIC Hx Endocrine Disorders: Yes Hx Adrenal Cancer: No Hx Diabetes Insipidus: No Hx Diabetes Mellitus Type 1: No Hx Diabetes Mellitus Type 2: No Hx Hyperthyroidism: No Hx Hypothyroidism: No Hx Systemic Lupus Erythematosus: Yes - HEMATOLOGICAL/ONCOLOGICAL Hx Blood Disorders: No Hx AIDS: No Hx Anemia: No Hx Blood Transfusions: No Hx Blood Transfusion Reaction: No Hx Bruising: No Hx Cancer: No Hx Chemotherapy: No Hx Cirrhosis: No Hx Gum Bleeding: No Hx Hemophilia: No Hx Hepatitis A: No Hx Hepatitis B: Yes Hx Hepatitis C: No Hx Human Immunodeficiency Virus (HIV): No Hx Leukemia: No Hx Metastesis: No Hx Shingles: No Hx Sickle Cell Disease: No Hx Unexplained Bleeding: No Hx von Willebrand's Disease: No - INTEGUMENTARY Hx Dermatological Problems: No - MUSCULOSKELETAL/RHEUMATOLOGICAL Hx Falls: No - GASTROINTESTINAL Hx Gastrointestinal Disorders: No - GENITOURINARY/GYNECOLOGICAL Hx Genitourinary Disorders: No - PSYCHIATRIC Hx Psychophysiologic Disorder: No Hx Substance Use: No - SURGICAL HISTORY Hx Surgeries: Yes Hx Abdominal Aortic Aneurysm Repair: No Hx Amputation: No Hx Angiogram: No Hx Angioplasty: No Hx Appendectomy: No Hx Arteriovenous Shunt: No Hx Arthroscopy: No Hx Bile Duct Stent: No Hx Breast Biopsy: No Hx Cataract Extraction: No Hx Cardiac Catheterization: No Hx Carotid Endarterectomy: No Hx Section: No Hx Cholecystectomy: No Hx Coronary Artery Bypass Graft: No Hx Coronary Stent: No Hx Dilation and Curettage: No Hx Eye Surgery: No Hx Femoral-Popliteal Bypass Graft: No Hx Gastric Bypass Surgery: No Hx Herniorrhaphy: No Hx Hysterectomy: Yes Hx Joint Replacement: No Hx Kidney Transplant: No Hx Liver Transplant: No Hx Mastectomy: No Hx Musculoskeletal Surgery: No Hx Open Heart Surgery: No Hx Open Reduction Internal Fixation: No Hx Orthopedic Surgery: No Hx Parathyroidectomy: No Hx Penile Implant: No Hx Pulmonary Surgery: No Hx Splenectomy: No Hx Thyroidectomy: No Hx Tonsillectomy: No Hx Tubal Ligation: No Hx Valve Replacement: No Hx Vascular Surgery: No Hx Vascular Access Device: No Other/Comment: LT BREAST CYST REMOVED - ANESTHESIA Hx Anesthesia: Yes Hx Anesthesia Reactions: No Hx Malignant Hyperthermia: No Meds Allergies/Adverse Reactions: Allergies Allergy/AdvReac Type Severity Reaction Status Date / Time No Known Allergies Allergy Verified 12/06/16 15:07 - Medications Medications: Current Medications Amlodipine Besylate (Norvasc) 10 mg PO DAILY [facility] Last Admin: 12/15/16 10:47 Dose: 10 mg Atenolol (Tenormin) 100 mg PO DAILY [facility] Last Admin: 12/15/16 10:46 Dose: 100 mg Epoetin Seymour (Procrit) 10,000 unit IV TTS [facility] Stop: 12/19/16 15:18 Last Admin: 12/13/16 19:55 Dose: 10,000 unit Hydralazine HCl (Apresoline) 100 mg PO BID [facility] Last Admin: 12/15/16 10:46 Dose: 100 mg Hydrochlorothiazide (Hydrodiuril) 25 mg PO DAILY [facility] Last Admin: 12/15/16 10:47 Dose: 25 mg Losartan Potassium (Cozaar) 100 mg PO DAILY [facility] Last Admin: 12/15/16 13:19 Dose: 100 mg Nitroglycerin (Nitro-Dur 0.2 Mg/Hr Patch) 1 patch TD DAILY [facility] Last Admin: 12/15/16 10:46 Dose: 1 patch Pantoprazole Sodium (Protonix Ec Tab) 40 mg PO DAILY [facility] Last Admin: 12/15/16 10:46 Dose: 40 mg Sodium Bicarbonate (Sodium Bicarbonate Tab) 650 mg PO Q6 [facility] Last Admin: 12/15/16 13:19 Dose: 650 mg Physical Exam - Constitutional Appears: Non-toxic - Head Exam Head Exam: ATRAUMATIC - Eye Exam Eye Exam: EOMI - ENT Exam ENT Exam: Mucous Membranes Moist - Neck Exam Neck exam: Negative for: Lymphadenopathy, Thyromegaly - Respiratory Exam Respiratory Exam: Clear to Auscultation Bilateral. absent: Rales - Cardiovascular Exam Cardiovascular Exam: REGULAR RHYTHM, Systolic Murmur - GI/Abdominal Exam GI & Abdominal Exam: Normal Bowel Sounds. absent: Organomegaly - Rectal Exam Rectal Exam: Deferred - Extremities Exam Extremities exam: Positive for: normal capillary refill. Negative for: calf tenderness - Neurological Exam Neurological exam: Alert, Oriented x3 - Psychiatric Exam Psychiatric exam: Normal Mood - Skin Skin Exam: Dry Results - Vital Signs Recent Vital Signs: Last Vital Signs Temp 98 F 12/15/16 08:23 Pulse 62 12/15/16 08:23 Resp 20 12/15/16 08:23 BP 157/90 H 12/15/16 08:23 Pulse Ox 95 12/15/16 08:23 - Labs Result Diagrams: 12/16/16 08:38 12/16/16 08:38 Labs: Laboratory Results - last 24 hr 12/15/16 12/15/16 07:51 07:51 WBC 6.1 RBC 2.94 L Hgb 7.9 L Hct 24.7 L MCV 84.2 MCH 26.9 L MCHC 32.0 L RDW 14.6 H Plt Count 211 MPV 7.5 Neut % (Auto) 57.4 Lymph % (Auto) 26.1 Butler % (Auto) 14.1 H Eos % (Auto) 2.0 Baso % (Auto) 0.4 Neut # 3.5 Lymph # 1.6 Butler # 0.9 H Eos # 0.1 Baso # 0.0 Sodium 136 Potassium 4.1 Chloride 97 L Carbon Dioxide 29 Anion Gap 14 BUN 35 H Creatinine 7.0 H Est GFR ( Amer) 7 Est GFR (Non-Af Amer) 6 Random Glucose 89 Calcium 9.1 Total Bilirubin 0.5 AST 19 ALT 9 D Alkaline Phosphatase 112 Total Protein 7.2 Albumin 3.4 L Globulin 3.8 Albumin/Globulin Ratio 0.9 L Assessment & Plan (1) ESRD (end stage renal disease) Status: Acute (2) Hypertension Status: Chronic (3) Preprocedural cardiovascular examination Status: Acute Comment: acceptable risk for cardiac complication from surgery
[2016-12-15 17:52] LABS: MEAN CELL VOLUME 84.4 fL (81.0-99.0); MEAN CORPUSCULAR HEMOGLOBIN 26.2 pg (27.0-31.0); RBC 3.06 Mil/uL (3.80-5.20); RED CELL DISTRIBUTION WIDTH 14.8 % (11.5-14.5)
[2016-12-16 08:52] LABS: BASO % 0.4 % (0.0-2.0); EOS # 0.1 K/uL (0.0-0.7); EOS % 1.6 % (0.0-4.0); HEMOGLOBIN 7.9 g/dL (11.0-16.0); LYMPH # 1.4 K/uL (1.0-4.3); LYMPH % 23.2 % (20.0-40.0); MEAN CELL VOLUME 84.2 fL (81.0-99.0); MEAN CORPUSCULAR HGB CONC 32.1 g/dL (33.0-37.0); MONO # 0.8 K/uL (0.0-0.8); NEUT # 3.6 K/uL (1.8-7.0); NEUT % 60.8 % (50.0-75.0); RBC 2.94 Mil/uL (3.80-5.20); RED CELL DISTRIBUTION WIDTH 14.6 % (11.5-14.5); WHITE BLOOD COUNT 5.9 K/uL (4.8-10.8)
[2016-12-16 08:57] LABS: PROTHROMBIN TIME 11.1 SECONDS (9.7-12.2)
[2016-12-16 09:18] LABS: ALBUMIN 3.4 g/dL (3.5-5.0)
[2016-12-16 09:21] LABS: ALB/GLOB RATIO 0.9 (1.0-2.1)
[2016-12-16 09:22] LABS: CALCIUM 8.9 mg/dl (8.6-10.4); MAGNESIUM 2.4 mg/dL (1.6-2.3)
[2016-12-16] MEDS ORDERED: HEPARIN-NS 5,000 UNITS/500 ML 5,000 UNIT/500 ML BAG IV ONE (09:55)
[2016-12-16] MEDS: Nitroglycerin 0.2 mg/hr Top Patch TD SCH (10:00)
[2016-12-16] MEDS: Epoetin Alfa 10,000 unit/ml Dialysis IV SCH (10:57)
[2016-12-16] MEDS ORDERED: ceFAZolin IV 2 gm in Dextrose 1 GM/50 ML BAG IVPB ONE (11:53)
[2016-12-16] MEDS ORDERED: Lidocaine 2% w Epi 1:100,000 Inj IJ ONE (12:00)
[2016-12-16] MEDS ORDERED: Bupivacaine HCl 0.25% PF (10 ml) Inj ONE (12:00)
[2016-12-16] MEDS ORDERED: Bupivacaine 0.5% Inj(30mL) ONE (12:00)
[2016-12-16] MEDS ORDERED: Sodium Chloride 0.9% 500 ML IV ONE (12:00)
[2016-12-16] MEDS ORDERED: Etomidate 20 mg/10ml Inj IV ONE (12:01)
[2016-12-16] MEDS ORDERED: Lidocaine 1% Inj (20ml) ONE (12:09)
[2016-12-16] MEDS ORDERED: Midazolam 2 MG/2 ML VIAL ONE ×2 (12:12→12:49)
--- NOTE | 2016-12-16 14:01 | PCM.SURG1 ---
Surgeon's Initial Post Op Note - Surgeon's Notes Surgeon: Jean Keg Washer: Koko Pre-Operative Diagnosis: ESRD Operative Findings: Brachial artery/vein Post-Operative Diagnosis: ESRD Operation Performed: AV Fistula Specimen/Specimens Removed: n/a Estimated Blood Loss: EBL {In ML}: 30 Date of Surgery/Procedure: 12/16/16 Time of Surgery/Procedure: 12:00
--- NOTE | 2016-12-16 14:12 | CP.PCM.PN ---
Subjective - Date & Time of Evaluation Date of Evaluation: 12/16/16 Time of Evaluation: 14:10 - Subjective Subjective: OPERATIVE REPORT NOT DICTATED DUE TO DICTATION SERVICE BREAKDOWN LOCAL BRACHIAL BRACHIAL NO ADEQUATE CEPAHALIC OR BASILIC VEIN Objective - Vital Signs/Intake and Output Vital Signs (last 24 hours): Temp Pulse Resp BP Pulse Ox 97.6 F 59 L 16 160/100 H 100 12/16/16 11:45 12/16/16 11:45 12/16/16 11:45 12/16/16 11:45 12/16/16 11:45 Intake and Output: 12/16/16 12/16/16 06:59 18:59 Intake Total 600 710 Balance 600 710 - Medications Medications: Current Medications Amlodipine Besylate (Norvasc) 10 mg PO DAILY [facility] Last Admin: 12/15/16 10:47 Dose: 10 mg Atenolol (Tenormin) 100 mg PO DAILY [facility] Last Admin: 12/16/16 11:36 Dose: Not Given Epoetin Seymour (Procrit) 10,000 unit IV TTS [facility] Stop: 12/19/16 15:18 Last Admin: 12/16/16 10:57 Dose: 10,000 unit Hydralazine HCl (Apresoline) 100 mg PO BID [facility] Last Admin: 12/16/16 10:30 Dose: 100 mg Hydrochlorothiazide (Hydrodiuril) 25 mg PO DAILY [facility] Last Admin: 12/15/16 10:47 Dose: 25 mg Losartan Potassium (Cozaar) 100 mg PO DAILY [facility] Last Admin: 12/16/16 10:30 Dose: 100 mg Morphine Sulfate (Morphine) 1 mg IVP Q10M PRN PRN Reason: Pain, moderate (4-7) Stop: 12/16/16 15:14 Nitroglycerin (Nitro-Dur 0.2 Mg/Hr Patch) 1 patch TD DAILY [facility] Last Admin: 12/15/16 10:46 Dose: 1 patch Pantoprazole Sodium (Protonix Ec Tab) 40 mg PO DAILY [facility] Last Admin: 12/15/16 10:46 Dose: 40 mg Sodium Bicarbonate (Sodium Bicarbonate Tab) 650 mg PO Q6 [facility] Last Admin: 12/16/16 12:40 Dose: Not Given - Labs Labs: 12/16/16 08:38 12/16/16 08:38 PT 11.1 SECONDS (9.7-12.2) 12/16/16 08:38 INR 1.0 12/16/16 08:38 APTT 24 SECONDS (21-34) 12/16/16 08:38
--- NOTE | 2016-12-16 14:26 | CP.PCM.PN ---
Subjective - Date & Time of Evaluation Date of Evaluation: 12/16/16 Time of Evaluation: 09:20 - Subjective Subjective: clinically same Objective - Vital Signs/Intake and Output Vital Signs (last 24 hours): Temp Pulse Resp BP Pulse Ox 97.6 F 59 L 16 160/100 H 100 12/16/16 11:45 12/16/16 11:45 12/16/16 11:45 12/16/16 11:45 12/16/16 11:45 Intake and Output: 12/16/16 12/16/16 06:59 18:59 Intake Total 600 710 Balance 600 710 - Medications Medications: Current Medications Amlodipine Besylate (Norvasc) 10 mg PO DAILY [facility] Last Admin: 12/15/16 10:47 Dose: 10 mg Atenolol (Tenormin) 100 mg PO DAILY [facility] Last Admin: 12/16/16 11:36 Dose: Not Given Epoetin Seymour (Procrit) 10,000 unit IV TTS [facility] Stop: 12/19/16 15:18 Last Admin: 12/16/16 10:57 Dose: 10,000 unit Hydralazine HCl (Apresoline) 100 mg PO BID [facility] Last Admin: 12/16/16 10:30 Dose: 100 mg Hydrochlorothiazide (Hydrodiuril) 25 mg PO DAILY [facility] Last Admin: 12/15/16 10:47 Dose: 25 mg Losartan Potassium (Cozaar) 100 mg PO DAILY [facility] Last Admin: 12/16/16 10:30 Dose: 100 mg Morphine Sulfate (Morphine) 1 mg IVP Q10M PRN PRN Reason: Pain, moderate (4-7) Stop: 12/16/16 15:14 Nitroglycerin (Nitro-Dur 0.2 Mg/Hr Patch) 1 patch TD DAILY [facility] Last Admin: 12/15/16 10:46 Dose: 1 patch Pantoprazole Sodium (Protonix Ec Tab) 40 mg PO DAILY [facility] Last Admin: 12/15/16 10:46 Dose: 40 mg Sodium Bicarbonate (Sodium Bicarbonate Tab) 650 mg PO Q6 [facility] Last Admin: 12/16/16 12:40 Dose: Not Given - Labs Labs: 12/16/16 08:38 12/16/16 08:38 PT 11.1 SECONDS (9.7-12.2) 12/16/16 08:38 INR 1.0 12/16/16 08:38 APTT 24 SECONDS (21-34) 12/16/16 08:38 - Constitutional Appears: Well - Head Exam Head Exam: ATRAUMATIC, NORMAL INSPECTION, NORMOCEPHALIC - Eye Exam Eye Exam: EOMI, Normal appearance, PERRL Pupil Exam: NORMAL ACCOMODATION, PERRL - ENT Exam ENT Exam: Mucous Membranes Moist, Normal Exam - Neck Exam Neck Exam: Full ROM, Normal Inspection. absent: Lymphadenopathy - Respiratory Exam Respiratory Exam: Decreased Breath Sounds - Cardiovascular Exam Cardiovascular Exam: REGULAR RHYTHM, +S1, +S2 - GI/Abdominal Exam GI & Abdominal Exam: Soft, Diminished Bowel Sounds - Rectal Exam Rectal Exam: Deferred Assessment and Plan (1) ESRD (end stage renal disease) Status: Acute (2) ESRD (end stage renal disease) on dialysis Status: Acute (3) Hypertension Status: Chronic (4) Renal failure, acute Status: Acute (5) Allergic urticaria Status: Acute (6) Hives Status: Acute (7) Low back pain Status: Acute (8) Uncontrolled hypertension Status: Acute
--- NOTE | 2016-12-16 15:22 | CP.PCM.PN ---
Subjective - Date & Time of Evaluation Date of Evaluation: 12/16/16 Time of Evaluation: 08:00 - Subjective Subjective: Medicine Progress Note- Dr. Gregory Medina's Service: Patient seen and examined at bedside this AM. Patient has no complaints this AM. She is on HD TTS. Patient is going to OR today for AVF placement. Objective - Vital Signs/Intake and Output Vital Signs (last 24 hours): Temp Pulse Resp BP Pulse Ox 98.6 F 60 18 158/88 H 96 12/16/16 13:59 12/16/16 15:15 12/16/16 15:15 12/16/16 15:15 12/16/16 15:15 Intake and Output: 12/16/16 12/16/16 06:59 18:59 Intake Total 600 710 Balance 600 710 - Medications Medications: Current Medications Amlodipine Besylate (Norvasc) 10 mg PO DAILY [facility] Last Admin: 12/15/16 10:47 Dose: 10 mg Atenolol (Tenormin) 100 mg PO DAILY [facility] Last Admin: 12/16/16 11:36 Dose: Not Given Epoetin Seymour (Procrit) 10,000 unit IV TTS [facility] Stop: 12/19/16 15:18 Last Admin: 12/16/16 10:57 Dose: 10,000 unit Hydralazine HCl (Apresoline) 100 mg PO BID [facility] Last Admin: 12/16/16 10:30 Dose: 100 mg Hydrochlorothiazide (Hydrodiuril) 25 mg PO DAILY [facility] Last Admin: 12/15/16 10:47 Dose: 25 mg Losartan Potassium (Cozaar) 100 mg PO DAILY [facility] Last Admin: 12/16/16 10:30 Dose: 100 mg Nitroglycerin (Nitro-Dur 0.2 Mg/Hr Patch) 1 patch TD DAILY [facility] Last Admin: 12/15/16 10:46 Dose: 1 patch Pantoprazole Sodium (Protonix Ec Tab) 40 mg PO DAILY [facility] Last Admin: 12/15/16 10:46 Dose: 40 mg Sodium Bicarbonate (Sodium Bicarbonate Tab) 650 mg PO Q6 [facility] Last Admin: 12/16/16 12:40 Dose: Not Given - Labs Labs: 12/16/16 08:38 12/16/16 08:38 PT 11.1 SECONDS (9.7-12.2) 12/16/16 08:38 INR 1.0 12/16/16 08:38 APTT 24 SECONDS (21-34) 12/16/16 08:38 - Additional Findings Additional findings: - Constitutional Appears: No Acute Distress - Head Exam Head Exam: NORMAL INSPECTION, NORMOCEPHALIC - Eye Exam Eye Exam: EOMI, Normal appearance - ENT Exam ENT Exam: Mucous Membranes Moist - Neck Exam Neck Exam: Full ROM - Respiratory Exam Respiratory Exam: Clear to Ausculation Bilateral, NORMAL BREATHING PATTERN - Cardiovascular Exam Cardiovascular Exam: REGULAR RHYTHM, +S1, +S2, Murmur Additional comments: +right chest portacath - GI/Abdominal Exam GI & Abdominal Exam: Soft. absent: Distended, Tenderness - Extremities Exam Extremities Exam: Full ROM, Normal Inspection - Back Exam Back Exam: NORMAL INSPECTION - Neurological Exam Neurological Exam: Alert, Oriented x3 - Psychiatric Exam Psychiatric exam: Normal Affect, Normal Mood - Skin Skin Exam: Dry, Normal Color, Warm Assessment and Plan - Assessment and Plan (Free Text) Assessment: Stage 5 Kidney Disease 12/16: Patient went to OR today for AVF. Dialysis received. 12/15: OR tomorrow for AVF with Dr. Gould. NPO at midnight. Consider transfusing PRBC tomorrow during dialysis. Cardio Consult, Dr. Avilez - pre-op clearance. 12/10: Patient underwent dialysis catheter placement today, received dialysis shortly after. Tolerated dialysis well. 12/09: No improvement in BUN/Cr with IVF. Patient will receive dialysis catheter tomorrow in AM with surgery team. Renal US - Medical renal disease, Small right kidney. see full report EKG - nsr, RBBB, see full report. -Consult nephrology, Dr. Iqbal -> HD TTS. Monitor BUN/Cr. -Consult Surgery, Dr. Gould -> Vein mapping ordered Metabolic Acidosis Continue to monitor 12/12-12/16: Bicarb normal. 12/10: Bicarb 16, Sodium Bicarb 650mg 1 tab Q6H. Continue to monitor. 12/09: Bicarb 17, Sodium Bicarb 650mg 1 tab Q6H x3 doses. Will re-evaluate in am after catheter placed. HTN 12/16: BP elevated, 164/100 Norvasc 10mg PO qd Atenolol 100mg PO qd Hydralazine 100mg PO BID HCTZ 25mg PO qd Losartan 100mg PO qd Nitroglycerin 1patch TD daily Anemia Likely due to poor renal function Hgb 6.9, Hct 21.9 on admission. transfused 1u PRBC on 12/09 12/12: hgb 8.1, stable Hx of Lupus - patient is not taking any medications at this time. Lower back pain 12/12: Resolved - likely musculo-skeletal - no CVA tenderness Electrolyte Imbalance -Hyperphosphatemia, P 6.1 -> Phoslo BID x3 days. Prophylaxis - renal diet - heparin 5k u SC Q12 - Protonix 40 mg PO daily All medical management as per Dr. Nir Medina. DC Planning: Case management looking for dialysis placement
--- NOTE | 2016-12-16 18:33 | CP.PCM.PN ---
Subjective - Date & Time of Evaluation Date of Evaluation: 12/16/16 Time of Evaluation: 13:00 - Subjective Subjective: had surgery did well, f/u with echo Objective - Vital Signs/Intake and Output Vital Signs (last 24 hours): Temp Pulse Resp BP Pulse Ox 98.9 F 61 12 142/88 97 12/16/16 15:30 12/16/16 15:30 12/16/16 15:30 12/16/16 15:30 12/16/16 15:30 Intake and Output: 12/16/16 12/16/16 06:59 18:59 Intake Total 600 1190 Balance 600 1190 - Medications Medications: Current Medications Amlodipine Besylate (Norvasc) 10 mg PO DAILY [facility] Last Admin: 12/15/16 10:47 Dose: 10 mg Atenolol (Tenormin) 100 mg PO DAILY [facility] Last Admin: 12/16/16 11:36 Dose: Not Given Calcium Acetate (Phoslo) 667 mg PO BIDCC [facility] Stop: 12/19/16 17:01 Epoetin Seymour (Procrit) 10,000 unit IV TTS [facility] Stop: 12/19/16 15:18 Last Admin: 12/16/16 10:57 Dose: 10,000 unit Hydralazine HCl (Apresoline) 100 mg PO BID [facility] Last Admin: 12/16/16 10:30 Dose: 100 mg Hydrochlorothiazide (Hydrodiuril) 25 mg PO DAILY [facility] Last Admin: 12/15/16 10:47 Dose: 25 mg Losartan Potassium (Cozaar) 100 mg PO DAILY [facility] Last Admin: 12/16/16 10:30 Dose: 100 mg Nitroglycerin (Nitro-Dur 0.2 Mg/Hr Patch) 1 patch TD DAILY [facility] Last Admin: 12/15/16 10:46 Dose: 1 patch Pantoprazole Sodium (Protonix Ec Tab) 40 mg PO DAILY [facility] Last Admin: 12/15/16 10:46 Dose: 40 mg Sodium Bicarbonate (Sodium Bicarbonate Tab) 650 mg PO Q6 [facility] Last Admin: 12/16/16 12:40 Dose: Not Given - Labs Labs: 12/16/16 08:38 12/16/16 08:38 PT 11.1 SECONDS (9.7-12.2) 12/16/16 08:38 INR 1.0 12/16/16 08:38 APTT 24 SECONDS (21-34) 12/16/16 08:38 - Constitutional Appears: Non-toxic - Head Exam Head Exam: ATRAUMATIC - Eye Exam Eye Exam: EOMI - ENT Exam ENT Exam: Mucous Membranes Moist - Neck Exam Neck Exam: absent: Lymphadenopathy, Thyromegaly - Respiratory Exam Respiratory Exam: Clear to Ausculation Bilateral. absent: Rales, Rhonchi - Cardiovascular Exam Cardiovascular Exam: REGULAR RHYTHM, Murmur - GI/Abdominal Exam GI & Abdominal Exam: Normal Bowel Sounds. absent: Organomegaly - Rectal Exam Rectal Exam: Deferred - Extremities Exam Extremities Exam: Normal Capillary Refill. absent: Calf Tenderness - Neurological Exam Neurological Exam: Alert, Oriented x3 - Psychiatric Exam Psychiatric exam: Normal Mood - Skin Skin Exam: Dry Assessment and Plan (1) ESRD (end stage renal disease) Status: Acute (2) Hypertension Status: Chronic (3) Preprocedural cardiovascular examination Status: Acute
[2016-12-16] MEDS: Pantoprazole 40 mg EC Tab PO SCH (18:54)
[2016-12-17 07:22] LABS: BASO % 0.3 % (0.0-2.0); EOS % 0.3 % (0.0-4.0); LYMPH # 1.3 K/uL (1.0-4.3); LYMPH % 17.2 % (20.0-40.0); MEAN CELL VOLUME 85.8 fL (81.0-99.0); MEAN CORPUSCULAR HEMOGLOBIN 27.9 pg (27.0-31.0); MEAN CORPUSCULAR HGB CONC 32.6 g/dL (33.0-37.0); MEAN PLATELET VOLUME 7.8 fL (7.2-11.7); MONO # 1.1 K/uL (0.0-0.8); MONO % 14.6 % (0.0-10.0); NEUT # 4.9 K/uL (1.8-7.0); NEUT % 67.6 % (50.0-75.0); NRBC % 0.1 % (0.0-2.0); RBC 3.61 Mil/uL (3.80-5.20); RED CELL DISTRIBUTION WIDTH 14.9 % (11.5-14.5); WHITE BLOOD COUNT 7.3 K/uL (4.8-10.8)
[2016-12-17 07:35] LABS: ALBUMIN 3.5 g/dL (3.5-5.0)
[2016-12-17 07:38] LABS: AST/SGOT 21 U/L (14-36); GFR AFRICAN-AMERICAN 8; GFR NON-AFRICAN AMERICAN 7; HEMOGLOBIN 10.1 g/dL (11.0-16.0)
[2016-12-17 07:39] LABS: ALB/GLOB RATIO 0.9 (1.0-2.1); ALT/SGPT < 6 U/L (9-52); BLOOD UREA NITROGEN 32 mg/dL (7-17); CALCIUM 9.3 mg/dl (8.6-10.4); MAGNESIUM 2.2 mg/dL (1.6-2.3)
--- NOTE | 2016-12-17 07:51 | CP.PCM.PN ---
Subjective - Date & Time of Evaluation Date of Evaluation: 12/17/16 Time of Evaluation: 07:45 - Subjective Subjective: Medicine Progress Note- Dr. Gregory Medina's Service: Patient seen and examined at bedside this AM. Patient has no complaints this AM. She is on HD TTS. Patient is AVF POD#1. Reports mild pain at incision site. Bandage CDI. Case management is finalizing outpatient dialysis placement. Patient has no acute complaints. Denies f/c, chest pain, SOB, abdominal pain, n/ v, d/c, or any additional complaints. Objective - Vital Signs/Intake and Output Vital Signs (last 24 hours): Temp Pulse Resp BP Pulse Ox 99.2 F 69 20 169/88 H 96 12/16/16 23:55 12/16/16 23:55 12/16/16 23:55 12/17/16 04:00 12/16/16 23:55 Intake and Output: 12/17/16 12/17/16 06:59 18:59 Intake Total 480 Balance 480 - Medications Medications: Current Medications Amlodipine Besylate (Norvasc) 10 mg PO DAILY [facility] Last Admin: 12/16/16 11:00 Dose: Not Given Atenolol (Tenormin) 100 mg PO DAILY [facility] Last Admin: 12/16/16 11:36 Dose: Not Given Calcium Acetate (Phoslo) 667 mg PO BIDCC [facility] Stop: 12/19/16 17:01 Epoetin Seymour (Procrit) 10,000 unit IV TTS [facility] Stop: 12/19/16 15:18 Last Admin: 12/16/16 10:57 Dose: 10,000 unit Hydralazine HCl (Apresoline) 100 mg PO BID [facility] Last Admin: 12/16/16 18:58 Dose: Not Given Hydrochlorothiazide (Hydrodiuril) 25 mg PO DAILY [facility] Last Admin: 12/16/16 11:00 Dose: Not Given Losartan Potassium (Cozaar) 100 mg PO DAILY [facility] Last Admin: 12/16/16 10:30 Dose: 100 mg Nitroglycerin (Nitro-Dur 0.2 Mg/Hr Patch) 1 patch TD DAILY [facility] Last Admin: 12/16/16 10:00 Dose: Not Given Pantoprazole Sodium (Protonix Ec Tab) 40 mg PO DAILY [facility] Last Admin: 12/16/16 18:54 Dose: 40 mg Sodium Bicarbonate (Sodium Bicarbonate Tab) 650 mg PO Q6 [facility] Last Admin: 12/17/16 06:09 Dose: 650 mg - Labs Labs: 12/17/16 07:09 12/17/16 07:09 PT 11.1 SECONDS (9.7-12.2) 12/16/16 08:38 INR 1.0 12/16/16 08:38 APTT 24 SECONDS (21-34) 12/16/16 08:38 - Additional Findings Additional findings: - Constitutional Appears: No Acute Distress - Head Exam Head Exam: NORMAL INSPECTION, NORMOCEPHALIC - Eye Exam Eye Exam: EOMI, Normal appearance - ENT Exam ENT Exam: Mucous Membranes Moist - Neck Exam Neck Exam: Full ROM - Respiratory Exam Respiratory Exam: Clear to Ausculation Bilateral, NORMAL BREATHING PATTERN - Cardiovascular Exam Cardiovascular Exam: REGULAR RHYTHM, +S1, +S2, Murmur Additional comments: +right chest portacath - GI/Abdominal Exam GI & Abdominal Exam: Soft. absent: Distended, Tenderness - Extremities Exam Extremities Exam: Full ROM, Normal Inspection - Back Exam Back Exam: NORMAL INSPECTION - Neurological Exam Neurological Exam: Alert, Oriented x3 - Psychiatric Exam Psychiatric exam: Normal Affect, Normal Mood - Skin Skin Exam: Dry, Normal Color, Warm Assessment and Plan - Assessment and Plan (Free Text) Assessment: Stage 5 Kidney Disease 12/17: AVF POD#1; mild pain, well controlled. 12/16: Patient went to OR today for AVF. Dialysis received. 12/15: OR tomorrow for AVF with Dr. Gould. NPO at midnight. Consider transfusing PRBC tomorrow during dialysis. Cardio Consult, Dr. Avilez - pre-op clearance. 12/10: Patient underwent dialysis catheter placement today, received dialysis shortly after. Tolerated dialysis well. 12/09: No improvement in BUN/Cr with IVF. Patient will receive dialysis catheter tomorrow in AM with surgery team. Renal US - Medical renal disease, Small right kidney. see full report EKG - nsr, RBBB, see full report. -Consult nephrology, Dr. Iqbal -> HD TTS. Monitor BUN/Cr. -Consult Surgery, Dr. Gould -> Vein mapping ordered Metabolic Acidosis Continue to monitor 12/12-12/17: Bicarb WNL 12/10: Bicarb 16, Sodium Bicarb 650mg 1 tab Q6H. Continue to monitor. 12/09: Bicarb 17, Sodium Bicarb 650mg 1 tab Q6H x3 doses. Will re-evaluate in am after catheter placed. HTN 12/17: BP elevated, continue to monitor. improves with dialysis. 12/16: BP elevated, 164/100 Norvasc 10mg PO qd Atenolol 100mg PO qd Hydralazine 100mg PO BID HCTZ 25mg PO qd Losartan 100mg PO qd Nitroglycerin 1patch TD daily Anemia 12/17: improved, Hgb 10.1 Likely due to poor renal function Hgb 6.9, Hct 21.9 on admission. transfused 1u PRBC on 12/09 12/12: hgb 8.1, stable Hx of Lupus - patient is not taking any medications at this time. Lower back pain 12/12: Resolved - likely musculo-skeletal - no CVA tenderness Electrolyte Imbalance -Hyperphosphatemia, P 6.1 -> Phoslo BID x3 days. --> 4.6 (improving) Prophylaxis - renal diet - heparin 5k u SC Q12 - Protonix 40 mg PO daily All medical management as per Dr. Nir Medina. DC Planning: Case management looking for dialysis placement, almost finalized.
--- NOTE | 2016-12-17 08:20 | CP.PCM.PN ---
Subjective - Date & Time of Evaluation Date of Evaluation: 12/17/16 Time of Evaluation: 08:17 - Subjective Subjective: SURGERY NOTE FOR DR. BECERRA 61F seen and examined at bedside. Patient complains of mild pain in incision site. Objective - Vital Signs/Intake and Output Vital Signs (last 24 hours): Temp Pulse Resp BP Pulse Ox 98.0 F 62 20 163/92 H 94 L 12/17/16 07:14 12/17/16 07:14 12/17/16 07:14 12/17/16 07:14 12/17/16 07:14 Intake and Output: 12/17/16 12/17/16 06:59 18:59 Intake Total 480 Balance 480 - Medications Medications: Current Medications Amlodipine Besylate (Norvasc) 10 mg PO DAILY [facility] Last Admin: 12/16/16 11:00 Dose: Not Given Atenolol (Tenormin) 100 mg PO DAILY [facility] Last Admin: 12/16/16 11:36 Dose: Not Given Calcium Acetate (Phoslo) 667 mg PO BIDCC [facility] Stop: 12/19/16 17:01 Epoetin Seymour (Procrit) 10,000 unit IV TTS [facility] Stop: 12/19/16 15:18 Last Admin: 12/16/16 10:57 Dose: 10,000 unit Hydralazine HCl (Apresoline) 100 mg PO BID [facility] Last Admin: 12/16/16 18:58 Dose: Not Given Hydrochlorothiazide (Hydrodiuril) 25 mg PO DAILY [facility] Last Admin: 12/16/16 11:00 Dose: Not Given Losartan Potassium (Cozaar) 100 mg PO DAILY [facility] Last Admin: 12/16/16 10:30 Dose: 100 mg Nitroglycerin (Nitro-Dur 0.2 Mg/Hr Patch) 1 patch TD DAILY [facility] Last Admin: 12/16/16 10:00 Dose: Not Given Pantoprazole Sodium (Protonix Ec Tab) 40 mg PO DAILY [facility] Last Admin: 12/16/16 18:54 Dose: 40 mg Sodium Bicarbonate (Sodium Bicarbonate Tab) 650 mg PO Q6 [facility] Last Admin: 12/17/16 06:09 Dose: 650 mg - Labs Labs: 12/17/16 07:09 12/17/16 07:09 PT 11.1 SECONDS (9.7-12.2) 12/16/16 08:38 INR 1.0 12/16/16 08:38 APTT 24 SECONDS (21-34) 12/16/16 08:38 - Constitutional Appears: Non-toxic, No Acute Distress - Respiratory Exam Respiratory Exam: Clear to Ausculation Bilateral, NORMAL BREATHING PATTERN - Cardiovascular Exam Cardiovascular Exam: REGULAR RHYTHM, +S1, +S2 - Extremities Exam Additional comments: Right arm wrapped with curlex, clean dry intact - Neurological Exam Neurological Exam: Alert, Awake - Skin Skin Exam: Dry, Intact, Normal Color, Warm Assessment and Plan - Assessment and Plan (Free Text) Assessment: 61F s/p right arm AVF POD1 Plan: - Pain control - no further surgical intervention Further recs discuss with Dr. Luis Fernando Sutherland, PGY1
[2016-12-17] MEDS: Nitroglycerin 0.2 mg/hr Top Patch TD SCH (10:38)
[2016-12-17] MEDS: Pantoprazole 40 mg EC Tab PO SCH (10:41)
--- NOTE | 2016-12-17 12:22 | CP.PCM.PN ---
Subjective - Date & Time of Evaluation Date of Evaluation: 12/17/16 Time of Evaluation: 12:00 - Subjective Subjective: Stable postop did well with surgery, echocardiogram with normal left ventricular contractility, minimal pericardial effusion, no aortic stenosis. Effusion can be secondary to uremic pericarditis we will observe. Objective - Vital Signs/Intake and Output Vital Signs (last 24 hours): Temp Pulse Resp BP Pulse Ox 98.0 F 62 20 163/92 H 94 L 12/17/16 07:14 12/17/16 07:14 12/17/16 07:14 12/17/16 07:14 12/17/16 07:14 Intake and Output: 12/17/16 12/17/16 06:59 18:59 Intake Total 480 Balance 480 - Medications Medications: Current Medications Acetaminophen (Tylenol 325mg Tab) 650 mg PO Q6 PRN PRN Reason: Pain, moderate (4-7) Amlodipine Besylate (Norvasc) 10 mg PO DAILY [facility] Last Admin: 12/17/16 10:41 Dose: 10 mg Atenolol (Tenormin) 100 mg PO DAILY [facility] Last Admin: 12/17/16 10:39 Dose: 100 mg Calcium Acetate (Phoslo) 667 mg PO BIDCC [facility] Stop: 12/19/16 17:01 Last Admin: 12/17/16 10:38 Dose: 667 mg Epoetin Seymour (Procrit) 10,000 unit IV TTS [facility] Stop: 12/19/16 15:18 Last Admin: 12/16/16 10:57 Dose: 10,000 unit Hydralazine HCl (Apresoline) 100 mg PO BID [facility] Last Admin: 12/17/16 10:40 Dose: 100 mg Hydrochlorothiazide (Hydrodiuril) 25 mg PO DAILY [facility] Last Admin: 12/17/16 10:39 Dose: 25 mg Losartan Potassium (Cozaar) 100 mg PO DAILY [facility] Last Admin: 12/16/16 10:30 Dose: 100 mg Nitroglycerin (Nitro-Dur 0.2 Mg/Hr Patch) 1 patch TD DAILY [facility] Last Admin: 12/17/16 10:38 Dose: 1 patch Pantoprazole Sodium (Protonix Ec Tab) 40 mg PO DAILY [facility] Last Admin: 12/17/16 10:41 Dose: 40 mg Sodium Bicarbonate (Sodium Bicarbonate Tab) 650 mg PO Q6 [facility] Last Admin: 12/17/16 06:09 Dose: 650 mg - Labs Labs: 12/17/16 07:09 12/17/16 07:09 PT 11.1 SECONDS (9.7-12.2) 12/16/16 08:38 INR 1.0 12/16/16 08:38 APTT 24 SECONDS (21-34) 12/16/16 08:38 - Constitutional Appears: Non-toxic - Head Exam Head Exam: ATRAUMATIC - Eye Exam Eye Exam: EOMI - ENT Exam ENT Exam: Mucous Membranes Moist - Neck Exam Neck Exam: absent: Lymphadenopathy, Thyromegaly - Respiratory Exam Respiratory Exam: Clear to Ausculation Bilateral. absent: Rales - Cardiovascular Exam Cardiovascular Exam: REGULAR RHYTHM. absent: Murmur - GI/Abdominal Exam GI & Abdominal Exam: Normal Bowel Sounds. absent: Organomegaly - Rectal Exam Rectal Exam: Deferred - Extremities Exam Extremities Exam: Normal Capillary Refill. absent: Calf Tenderness - Neurological Exam Neurological Exam: Alert, Oriented x3 - Psychiatric Exam Psychiatric exam: Normal Mood - Skin Skin Exam: Dry Assessment and Plan (1) ESRD (end stage renal disease) Status: Acute (2) Hypertension Status: Chronic (3) Preprocedural cardiovascular examination Status: Acute
--- NOTE | 2016-12-17 14:01 | CARD ---
APPROVED REPORT EXAM: Two-dimensional and M-mode echocardiogram with Doppler and color Doppler. Other Information Quality : GoodRhythm : NSR INDICATION Pre-Op RISK FACTORS Hypertension 2D DIMENSIONS IVSd1.1 (0.7-1.1cm)Aortic Root (2D)3.7 (2.0-3.7cm) LVDd5.4 (3.9-5.9cm)PWd0.8 (0.7-1.1cm) LVDs3.8 (2.5-4.0cm)FS (%) 30.1 % LVEF (%)56.9 (>50%) M-Mode DIMENSIONS RVDd3.10 (2.1-3.2cm)Left Atrium (MM)3.61 (2.5-4.0cm) IVSd1.14 (0.7-1.1cm)Aortic Root3.50 (2.2-3.7cm) LVDd5.68 (4.0-5.6cm)Aortic Cusp Exc.1.95 (1.5-2.0cm) PWd0.92 (0.7-1.1cm)FS (%) 37 % LVDs3.58 (2.0-3.8cm)LVEF (%)66 (>50%) Aortic Valve AI P 1/2 [id number] Mitral Valve MV E Pafenyrp20.2cm/sMV A Bruigtnt06.6cm/sE/A ratio0.6 TDI E/Lateral E'0.0E/Medial E'0.0 Tricuspid Valve TR Peak [id number]/sTR Peak [id number] <Conclusion> borderline dilated la(4.0),lv(5.8). normal size ra,rv. normal lv wall motion,thickness & systolic function with lvef of more than 70%. lv diastolic dysfunciton grade one. normal mitral,tv,aortic & pv. mild ai,mr,tr & pi with calculated pulmonary systolic pressures of 42 mm of hg,mild pulmonary hypertension. aortic root appears mildly dilated,4.0 cm. no pericardial effusion. small posterior pericardial effusion. can not exclude pfo.
--- NOTE | 2016-12-17 18:03 | CP.PCM.PN ---
Subjective - Date & Time of Evaluation Date of Evaluation: 12/17/16 Time of Evaluation: 08:40 - Subjective Subjective: clinically same Objective - Vital Signs/Intake and Output Vital Signs (last 24 hours): Temp Pulse Resp BP Pulse Ox 98.0 F 62 20 163/92 H 94 L 12/17/16 07:14 12/17/16 07:14 12/17/16 07:14 12/17/16 07:14 12/17/16 07:14 Intake and Output: 12/17/16 12/17/16 06:59 18:59 Intake Total 480 480 Balance 480 480 - Medications Medications: Current Medications Acetaminophen (Tylenol 325mg Tab) 650 mg PO Q6 PRN PRN Reason: Pain, moderate (4-7) Amlodipine Besylate (Norvasc) 10 mg PO DAILY [facility] Last Admin: 12/17/16 10:41 Dose: 10 mg Atenolol (Tenormin) 100 mg PO DAILY [facility] Last Admin: 12/17/16 10:39 Dose: 100 mg Calcium Acetate (Phoslo) 667 mg PO BIDCC [facility] Stop: 12/19/16 17:01 Last Admin: 12/17/16 10:38 Dose: 667 mg Epoetin Seymour (Procrit) 10,000 unit IV TTS [facility] Stop: 12/19/16 15:18 Last Admin: 12/16/16 10:57 Dose: 10,000 unit Hydralazine HCl (Apresoline) 100 mg PO BID [facility] Last Admin: 12/17/16 10:40 Dose: 100 mg Hydrochlorothiazide (Hydrodiuril) 25 mg PO DAILY [facility] Last Admin: 12/17/16 10:39 Dose: 25 mg Losartan Potassium (Cozaar) 100 mg PO DAILY [facility] Last Admin: 12/17/16 13:34 Dose: 100 mg Nitroglycerin (Nitro-Dur 0.2 Mg/Hr Patch) 1 patch TD DAILY [facility] Last Admin: 12/17/16 10:38 Dose: 1 patch Pantoprazole Sodium (Protonix Ec Tab) 40 mg PO DAILY [facility] Last Admin: 12/17/16 10:41 Dose: 40 mg Sodium Bicarbonate (Sodium Bicarbonate Tab) 650 mg PO Q6 [facility] Last Admin: 12/17/16 13:34 Dose: 650 mg - Labs Labs: 12/17/16 07:09 12/17/16 07:09 PT 11.1 SECONDS (9.7-12.2) 12/16/16 08:38 INR 1.0 12/16/16 08:38 APTT 24 SECONDS (21-34) 12/16/16 08:38 - Constitutional Appears: Well - Head Exam Head Exam: ATRAUMATIC, NORMAL INSPECTION, NORMOCEPHALIC - Eye Exam Eye Exam: EOMI, Normal appearance, PERRL Pupil Exam: NORMAL ACCOMODATION, PERRL - ENT Exam ENT Exam: Mucous Membranes Moist, Normal Exam - Neck Exam Neck Exam: Full ROM, Normal Inspection. absent: Lymphadenopathy - Respiratory Exam Respiratory Exam: Decreased Breath Sounds - Cardiovascular Exam Cardiovascular Exam: REGULAR RHYTHM, +S1, +S2 - GI/Abdominal Exam GI & Abdominal Exam: Soft, Diminished Bowel Sounds - Rectal Exam Rectal Exam: Deferred Assessment and Plan (1) ESRD (end stage renal disease) Status: Acute (2) ESRD (end stage renal disease) on dialysis Status: Acute (3) Hypertension Status: Chronic (4) Renal failure, acute Status: Acute (5) Allergic urticaria Status: Acute (6) Hives Status: Acute (7) Low back pain Status: Acute (8) Uncontrolled hypertension Status: Acute
[2016-12-18 08:39] LABS: BASO % 0.5 % (0.0-2.0); EOS # 0.1 K/uL (0.0-0.7); EOS % 1.1 % (0.0-4.0); LYMPH # 1.3 K/uL (1.0-4.3); LYMPH % 18.7 % (20.0-40.0); MEAN CELL VOLUME 85.6 fL (81.0-99.0); MEAN CORPUSCULAR HEMOGLOBIN 27.5 pg (27.0-31.0); MEAN CORPUSCULAR HGB CONC 32.2 g/dL (33.0-37.0); MEAN PLATELET VOLUME 7.8 fL (7.2-11.7); MONO # 0.9 K/uL (0.0-0.8); MONO % 13.6 % (0.0-10.0); NEUT # 4.4 K/uL (1.8-7.0); NEUT % 66.1 % (50.0-75.0); RBC 3.64 Mil/uL (3.80-5.20); RED CELL DISTRIBUTION WIDTH 15.3 % (11.5-14.5); WHITE BLOOD COUNT 6.7 K/uL (4.8-10.8)
[2016-12-18 08:54] LABS: ALBUMIN 3.5 g/dL (3.5-5.0)
[2016-12-18 08:57] LABS: ALB/GLOB RATIO 0.9 (1.0-2.1)
[2016-12-18 08:58] LABS: CALCIUM 9.2 mg/dl (8.6-10.4); MAGNESIUM 2.4 mg/dL (1.6-2.3)
--- NOTE | 2016-12-18 09:23 | CP.PCM.PN ---
Subjective - Date & Time of Evaluation Date of Evaluation: 12/18/16 Time of Evaluation: 09:22 - Subjective Subjective: PGY2 Medicine Note- Dr. Medina's service Patient seen and examined while in dialysis. Patient with no complaints at this time, denies pain at catheter or fistula. Patient pending HD placement. Objective - Vital Signs/Intake and Output Vital Signs (last 24 hours): Temp Pulse Resp BP Pulse Ox 97.9 F 60 20 163/86 H 95 12/18/16 08:48 12/18/16 08:48 12/18/16 08:48 12/18/16 08:48 12/18/16 08:48 - Medications Medications: Current Medications Acetaminophen (Tylenol 325mg Tab) 650 mg PO Q6 PRN PRN Reason: Pain, moderate (4-7) Amlodipine Besylate (Norvasc) 10 mg PO DAILY [facility] Last Admin: 12/17/16 10:41 Dose: 10 mg Atenolol (Tenormin) 100 mg PO DAILY [facility] Last Admin: 12/17/16 10:39 Dose: 100 mg [facility] Stop: 12/19/16 17:01 Last Admin: 12/18/16 08:00 Dose: Not Given Epoetin Seymour (Procrit) 10,000 unit IV TTS [facility] Stop: 12/19/16 15:18 Last Admin: 12/16/16 10:57 Dose: 10,000 unit Hydralazine HCl (Apresoline) 100 mg PO BID [facility] Last Admin: 12/17/16 18:12 Dose: 100 mg Hydrochlorothiazide (Hydrodiuril) 25 mg PO DAILY [facility] Last Admin: 12/17/16 10:39 Dose: 25 mg Losartan Potassium (Cozaar) 100 mg PO DAILY [facility] Last Admin: 12/17/16 13:34 Dose: 100 mg Nitroglycerin (Nitro-Dur 0.2 Mg/Hr Patch) 1 patch TD DAILY [facility] Last Admin: 12/17/16 10:38 Dose: 1 patch Pantoprazole Sodium (Protonix Ec Tab) 40 mg PO DAILY [facility] Last Admin: 12/17/16 10:41 Dose: 40 mg Sodium Bicarbonate (Sodium Bicarbonate Tab) 650 mg PO Q6 [facility] Last Admin: 12/18/16 06:16 Dose: 650 mg - Labs Labs: 12/18/16 08:28 12/18/16 08:28 PT 11.1 SECONDS (9.7-12.2) 12/16/16 08:38 INR 1.0 12/16/16 08:38 APTT 24 SECONDS (21-34) 12/16/16 08:38 - Constitutional Appears: Non-toxic, No Acute Distress - Head Exam Head Exam: ATRAUMATIC, NORMOCEPHALIC - Eye Exam Eye Exam: EOMI - ENT Exam ENT Exam: Mucous Membranes Moist - Respiratory Exam Respiratory Exam: Decreased Breath Sounds, NORMAL BREATHING PATTERN - Cardiovascular Exam Cardiovascular Exam: +S1, +S2, Murmur Additional comments: right chest portacath, non-tender - GI/Abdominal Exam GI & Abdominal Exam: Soft. absent: Tenderness - Extremities Exam Extremities Exam: Normal Inspection - Neurological Exam Neurological Exam: Alert, Awake - Psychiatric Exam Psychiatric exam: Normal Affect - Skin Skin Exam: Warm Assessment and Plan - Assessment and Plan (Free Text) Assessment: Stage 5 Kidney Disease 12/18: AVF POD #2, dialysis catheter functioning well 12/17: AVF POD#1; mild pain, well controlled. 12/16: Patient went to OR today for AVF. Dialysis received. 12/15: OR tomorrow for AVF with Dr. Gould. NPO at midnight. Consider transfusing PRBC tomorrow during dialysis. Cardio Consult, Dr. Avilez - pre-op clearance. 12/10: Patient underwent dialysis catheter placement today, received dialysis shortly after. Tolerated dialysis well. 12/09: No improvement in BUN/Cr with IVF. Patient will receive dialysis catheter tomorrow in AM with surgery team. Renal US - Medical renal disease, Small right kidney. see full report EKG - nsr, RBBB, see full report. -Consult nephrology, Dr. Iqbal -> HD TTS. Monitor BUN/Cr. -Consult Surgery, Dr. Gould -> Vein mapping ordered Metabolic Acidosis Continue to monitor 12/12-12/17: Bicarb WNL 12/10: Bicarb 16, Sodium Bicarb 650mg 1 tab Q6H. Continue to monitor. 12/09: Bicarb 17, Sodium Bicarb 650mg 1 tab Q6H x3 doses. Will re-evaluate in am after catheter placed. HTN 12/18: coreg increased to 6.25 BID by nephro, BP improved 12/17: BP elevated, continue to monitor. improves with dialysis. 12/16: BP elevated, 164/100 Norvasc 10mg PO qd Atenolol 100mg PO qd Hydralazine 100mg PO BID HCTZ 25mg PO qd Losartan 100mg PO qd Nitroglycerin 1patch TD daily Anemia 12/18: stable at 10.0 12/17: improved, Hgb 10.1 Likely due to poor renal function Hgb 6.9, Hct 21.9 on admission. transfused 1u PRBC on 12/09 12/12: hgb 8.1, stable Hx of Lupus - patient is not taking any medications at this time. Lower back pain 12/12: Resolved - likely musculo-skeletal - no CVA tenderness Electrolyte Imbalance -Hyperphosphatemia, P 6.1 -> Phoslo BID x3 days. --> 5.5 (improving) -HD today Prophylaxis - renal diet - heparin 5k u SC Q12 - Protonix 40 mg PO daily All medical management as per Dr. Nir Medina. DC Planning: Case management looking for dialysis placement, almost finalized.
[2016-12-18] MEDS: Epoetin Alfa 10,000 unit/ml Dialysis IV SCH (09:42)
--- NOTE | 2016-12-18 10:33 | CP.PCM.PN ---
Subjective - Date & Time of Evaluation Date of Evaluation: 12/18/16 Time of Evaluation: 08:40 - Subjective Subjective: clinically same Objective - Vital Signs/Intake and Output Vital Signs (last 24 hours): Temp Pulse Resp BP Pulse Ox 98.3 F 60 18 149/94 H 100 12/18/16 09:10 12/18/16 09:10 12/18/16 09:10 12/18/16 10:10 12/18/16 09:10 - Medications Medications: Current Medications Acetaminophen (Tylenol 325mg Tab) 650 mg PO Q6 PRN PRN Reason: Pain, moderate (4-7) Amlodipine Besylate (Norvasc) 10 mg PO DAILY [facility] Last Admin: 12/17/16 10:41 Dose: 10 mg Atenolol (Tenormin) 100 mg PO DAILY [facility] Last Admin: 12/17/16 10:39 Dose: 100 mg Calcium Acetate (Phoslo) 667 mg PO BIDCC [facility] Stop: 12/19/16 17:01 Last Admin: 12/18/16 08:00 Dose: Not Given Epoetin Seymour (Procrit) 10,000 unit IV TTS [facility] Stop: 12/19/16 15:18 Last Admin: 12/18/16 09:42 Dose: 10,000 unit Hydralazine HCl (Apresoline) 100 mg PO BID [facility] Last Admin: 12/17/16 18:12 Dose: 100 mg Hydrochlorothiazide (Hydrodiuril) 25 mg PO DAILY [facility] Last Admin: 12/17/16 10:39 Dose: 25 mg Losartan Potassium (Cozaar) 100 mg PO DAILY [facility] Last Admin: 12/17/16 13:34 Dose: 100 mg Nitroglycerin (Nitro-Dur 0.2 Mg/Hr Patch) 1 patch TD DAILY [facility] Last Admin: 12/17/16 10:38 Dose: 1 patch Pantoprazole Sodium (Protonix Ec Tab) 40 mg PO DAILY [facility] Last Admin: 12/17/16 10:41 Dose: 40 mg Sodium Bicarbonate (Sodium Bicarbonate Tab) 650 mg PO Q6 [facility] Last Admin: 12/18/16 06:16 Dose: 650 mg - Labs Labs: 12/18/16 08:28 12/18/16 08:28 PT 11.1 SECONDS (9.7-12.2) 12/16/16 08:38 INR 1.0 12/16/16 08:38 APTT 24 SECONDS (21-34) 12/16/16 08:38 - Constitutional Appears: Well - Head Exam Head Exam: ATRAUMATIC, NORMAL INSPECTION, NORMOCEPHALIC - Eye Exam Eye Exam: EOMI, Normal appearance, PERRL Pupil Exam: NORMAL ACCOMODATION, PERRL - ENT Exam ENT Exam: Mucous Membranes Moist, Normal Exam - Neck Exam Neck Exam: Full ROM, Normal Inspection. absent: Lymphadenopathy - Respiratory Exam Respiratory Exam: Decreased Breath Sounds - Cardiovascular Exam Cardiovascular Exam: REGULAR RHYTHM, +S1, +S2 - GI/Abdominal Exam GI & Abdominal Exam: Soft, Diminished Bowel Sounds - Rectal Exam Rectal Exam: Deferred Assessment and Plan (1) ESRD (end stage renal disease) Status: Acute (2) ESRD (end stage renal disease) on dialysis Status: Acute (3) Hypertension Status: Chronic (4) Renal failure, acute Status: Acute (5) Allergic urticaria Status: Acute (6) Hives Status: Acute (7) Low back pain Status: Acute (8) Uncontrolled hypertension Status: Acute
[2016-12-18] MEDS: Pantoprazole 40 mg EC Tab PO SCH ×2 (11:09→15:55)
[2016-12-18] MEDS: Nitroglycerin 0.2 mg/hr Top Patch TD SCH (11:09)
--- NOTE | 2016-12-18 14:19 | CP.PCM.PN ---
Subjective - Date & Time of Evaluation Date of Evaluation: 12/18/16 Time of Evaluation: 14:00 - Subjective Subjective: stable cardiac no sob, awaiting outpt HD Objective - Vital Signs/Intake and Output Vital Signs (last 24 hours): Temp Pulse Resp BP Pulse Ox 97.8 F 58 L 18 145/86 97 12/18/16 12:10 12/18/16 12:10 12/18/16 12:10 12/18/16 12:10 12/18/16 12:10 - Medications Medications: Current Medications Acetaminophen (Tylenol 325mg Tab) 650 mg PO Q6 PRN PRN Reason: Pain, moderate (4-7) Amlodipine Besylate (Norvasc) 10 mg PO DAILY [facility] Last Admin: 12/18/16 11:09 Dose: Not Given Atenolol (Tenormin) 100 mg PO DAILY [facility] Last Admin: 12/18/16 11:10 Dose: Not Given Calcium Acetate (Phoslo) 667 mg PO BIDCC [facility] Stop: 12/19/16 17:01 Last Admin: 12/18/16 08:00 Dose: Not Given Epoetin Seymour (Procrit) 10,000 unit IV TTS [facility] Stop: 12/19/16 15:18 Last Admin: 12/18/16 09:42 Dose: 10,000 unit Hydralazine HCl (Apresoline) 100 mg PO BID [facility] Last Admin: 12/18/16 11:09 Dose: Not Given Hydrochlorothiazide (Hydrodiuril) 25 mg PO DAILY [facility] Last Admin: 12/18/16 11:09 Dose: Not Given Losartan Potassium (Cozaar) 100 mg PO DAILY [facility] Last Admin: 12/18/16 11:09 Dose: Not Given Nitroglycerin (Nitro-Dur 0.2 Mg/Hr Patch) 1 patch TD DAILY [facility] Last Admin: 12/18/16 11:09 Dose: Not Given Pantoprazole Sodium (Protonix Ec Tab) 40 mg PO DAILY [facility] Last Admin: 12/18/16 11:09 Dose: Not Given Sodium Bicarbonate (Sodium Bicarbonate Tab) 650 mg PO Q6 [facility] Last Admin: 12/18/16 12:00 Dose: Not Given - Labs Labs: 12/18/16 08:28 12/18/16 08:28 PT 11.1 SECONDS (9.7-12.2) 12/16/16 08:38 INR 1.0 12/16/16 08:38 APTT 24 SECONDS (21-34) 12/16/16 08:38 - Constitutional Appears: Non-toxic - Head Exam Head Exam: ATRAUMATIC - Eye Exam Eye Exam: EOMI - ENT Exam ENT Exam: Mucous Membranes Moist - Neck Exam Neck Exam: absent: Lymphadenopathy, Thyromegaly - Cardiovascular Exam Cardiovascular Exam: REGULAR RHYTHM, Murmur - GI/Abdominal Exam GI & Abdominal Exam: Normal Bowel Sounds. absent: Organomegaly - Rectal Exam Rectal Exam: Deferred - Extremities Exam Extremities Exam: Normal Capillary Refill. absent: Calf Tenderness - Neurological Exam Neurological Exam: Alert, Oriented x3 - Psychiatric Exam Psychiatric exam: Normal Mood - Skin Skin Exam: Dry Assessment and Plan (1) ESRD (end stage renal disease) Status: Acute (2) Hypertension Status: Chronic (3) Preprocedural cardiovascular examination Status: Acute
[2016-12-18 16:39] VITALS: BP 154/92; PULSE 65; RESP 20; TEMP 98.5; O2SAT 96
--- NOTE | 2017-01-05 13:25 | CARD ---
APPROVED REPORT EKG Measurement Heart [id number] <Conclusion> Sinus bradycardia Right bundle branch block Abnormal ECG
--- NOTE | 2017-01-06 17:43 | PCM.OP ---
Operative Report - Operative Report Date of Surgery/Procedure: 12/15/16 Surgeon: Dr. Gould Business Banking Manager: Dr. Echavarria Anesthesia/Sedation: axillary block by Staff anesthesiologist Pre-Operative Diagnosis: Renal failure Post-Operative Diagnosis: Renal failure Operative Findings: Brachiobasilic fistula Procedure/Operation Description: Patient was given anesthesia. Patient's vein was marked with US. An incision was made directly over the vein. The vein and artery were then anastomosed in an end-to-side fashion using loupe magnification and Heparin anticoagulation. The completion of the anastomosis produced excellent flow through the fistula, and the procedure was terminated. Estimated Blood Loss: 25ccs Complications: None
== END 2016-12-18 17:10 | disposition home or self-care (01) | DRG 567 ==
LOC: C.ER 14:55 → C.9E 16:49 → C.3T 17:15 → C.5T 12-10 14:20
PROVIDERS: ADMIT Internal Medicine Nephrology; ATTEND Internal Medicine Nephrology
PROC: 02HV33Z Insertion of Infusion Device into Superior Vena Cava, Percutaneous Approach (ICD-10-PCS; 2016-12-10)
PROC: 5A1D60Z (ICD-10-PCS; principal; 2016-12-10 12:30)
PROC: 03170ZD Bypass Right Brachial Artery to Upper Arm Vein, Open Approach (ICD-10-PCS; 2016-12-16)
DX: I12.0 Hypertensive chronic kidney disease with stage 5 chronic kidney disease or end stage renal disease (principal); N17.9 Acute kidney failure, unspecified; M32.9 Systemic lupus erythematosus, unspecified; E87.2 Acidosis; N18.6 End stage renal disease; D64.9 Anemia, unspecified; N27.0 Small kidney, unilateral; D63.1 Anemia in chronic kidney disease; Z99.2 Dependence on renal dialysis; M06.9 Rheumatoid arthritis, unspecified

== ENCOUNTER 2017-02-17 11:04 | Day surgery (SDC) | payer MEDICAID ==
[2017-02-11 10:48] VITALS: BMI 29.7
[2017-02-17 12:09] LABS: CALCIUM 9.2 mg/dl (8.6-10.4)
[2017-02-17] MEDS ORDERED: ceFAZolin 1 gm FROZEN Premix 0 GM/0 ML ML IVPB ONE (12:44)
[2017-02-17] MEDS ORDERED: HEPARIN-NS 5,000 UNITS/500 ML 5,000 UNIT/500 ML BAG IV ONE (12:44)
[2017-02-17] MEDS ORDERED: Propofol 10 mg/ml Inj (20 ML) ONE (13:19)
[2017-02-17] MEDS ORDERED: Lidocaine Hydrochloride 5 ML INJ ONE (13:19)
[2017-02-17] MEDS ORDERED: Sodium Chloride 0.9% 1,000 ML IV ONE (13:50)
[2017-02-17] MEDS ORDERED: ceFAZolin IV 1 gm in Dextrose 1 GM/50 ML BAG IVPB ONE (14:06)
[2017-02-17] MEDS ORDERED: Iodixanol 320 MG/ML 200 ML BOTTLE IV ONE (14:15)
[2017-02-17] MEDS ORDERED: ePHEDrine 50 mg/ml Inj ONE (14:37)
[2017-02-17] MEDS ORDERED: HYDROmorphone 0.5 mg/0.5 ml ISec IVP PRN (16:06)
--- NOTE | 2017-02-17 16:10 | PCM.SURG1 ---
Surgeon's Initial Post Op Note - Surgeon's Notes Surgeon: MD Luis Fernando Hvac Specialist: YANET SutherlandY2. 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
[2017-02-17] MEDS ORDERED: Oxycodone/Acetaminophen 5/325 mg Tab PO PRN (16:12)
[2017-02-17] MEDS ORDERED: HYDROmorphone 0.5 mg/0.5 ml ISec ONE (16:20)
[2017-02-17 17:26] VITALS: RESP 18; TEMP 97.8; O2SAT 96
[2017-02-17 17:59] VITALS: BP 152/82; PULSE 65
--- NOTE | 2017-02-18 12:52 | OP ---
PROCEDURE DATE: 02/17/2017 PREOPERATIVE DIAGNOSIS: Matured fistula, right arm. POSTOPERATIVE DIAGNOSIS: Matured fistula, right arm. PROCEDURE CARRIED OUT: Revision of AV fistula with intraoperative arteriogram. SURGEON: Dante Gould Jr., MD MANAGER OCCUPATIONAL: . ANESTHESIOLOGIST: Mr. Carlson. INDICATIONS: A 61-year-old woman had basilic vein fistula, which actually was a brachial vein fistula, which is not matured and is deep to the skin. Preoperative imaging suggested that there is a sole-anastomotic stenosis. OPERATIVE FINDINGS: This was a nice fistula that was 6 mm in diameter except for approximately an inch and a half in its midportion, which we attempted to hydrostatically dilate. It is amenable to balloon dilatation after it has healed. An angiogram was carried out of the arterial anastomosis, which did not show any evidence of significant stenosis. DESCRIPTION OF PROCEDURE: The patient was given general anesthesia and intravenous antibiotics was marked on the skin. The brachial vein was dissected from the elbow to the axilla. After this had been done, it was mobilized, the branch was ligated and then brought into the subcutaneous position. Prior to closing the skin, we carried out an angiogram with an outflow vessel clamp and this showed brisk filling of the anastomosis fistula in the artery without any evidence of sole-anastomotic stenosis. The wound was then closed and the procedure was terminated. The operation carried out is revision of AV fistula in the right arm with placement of basilic vein transposition with intraoperative arteriogram. Dante Gould Jr., MD
--- NOTE | 2017-02-18 15:56 | RAD ---
PROCEDURE: Intraoperative fluoroscopy HISTORY: RENAL FAILURE COMPARISON: Not available TECHNIQUE: Intraoperative fluoroscopy was provided for AV fistula revision. Total time of fluoroscopy was 32.6 seconds. FINDINGS: Multiple fluoroscopic spot films are submitted. Films are on file for review. IMPRESSION: Fluoroscopy provided.
== END 2017-02-17 17:55 | disposition home or self-care (01) ==
LOC: C.SDS 11:04
PROVIDERS: ATTEND Surgery Vascular Surgery
DX: T82.858A Stenosis of other vascular prosthetic devices, implants and grafts, initial encounter (principal); Y71.1 Therapeutic (nonsurgical) and rehabilitative cardiovascular devices associated with adverse incidents; Y92.9 Unspecified place or not applicable; I12.0 Hypertensive chronic kidney disease with stage 5 chronic kidney disease or end stage renal disease; N18.6 End stage renal disease; Z99.2 Dependence on renal dialysis
CPT/HCPCS: 36415; 36902; 80048; 86850; 86900; J0690; J1170; J1644; J2405; J2704; J3010; J7040

== ENCOUNTER 2017-07-14 09:43 | Day surgery (SDC) | payer MEDICAID ==
[2017-07-09 08:18] VITALS: BMI 29.3
[~2017-07-14 09:43] MED LIST: Midazolam 2 MG/2 ML VIAL ONE; Propofol 10 mg/ml Inj (20 ML) ONE; Succinylcholine Chloride 20 mg/ml Syr (5 ml) IV ONE
[2017-07-14] MEDS ORDERED: ceFAZolin IV 2 gm in Dextrose 2 GM/50 ML BAG IVPB ONE (10:54)
[2017-07-14 10:55] LABS: CALCIUM 9.7 mg/dl (8.6-10.4)
[2017-07-14] MEDS ORDERED: HEPARIN-NS 5,000 UNITS/500 ML 5,000 UNIT/500 ML BAG IV ONE (10:55)
[2017-07-14] MEDS ORDERED: Iohexol 240 200 ML ONE (10:57)
[2017-07-14] MEDS ORDERED: Sodium Chloride 0.9% 1,000 ML IV ONE (11:40)
[2017-07-14] MEDS ORDERED: Lidocaine 1% Inj (20ml) ONE (12:14)
--- NOTE | 2017-07-14 13:07 | PCM.SURG1 ---
Surgeon's Initial Post Op Note - Surgeon's Notes Surgeon: Luis Fernando Panel Installer: [id number] Type of Anesthesia: IV Sedation, Local Pre-Operative Diagnosis: R arm AVF aneurysm Operative Findings: see op note Post-Operative Diagnosis: R arm AVF aneurysm Operation Performed: R arm AVF fistulogram Specimen/Specimens Removed: n/a Estimated Blood Loss: EBL {In ML}: 20 Blood Products Given: N/A Drains Used: No Drains Post-Op Condition: Good Date of Surgery/Procedure: 07/14/17 Time of Surgery/Procedure: 12:00
[2017-07-14 14:11] VITALS: RESP 16
[2017-07-14 15:36] VITALS: BP 121/65; PULSE 65; TEMP 98.3; O2SAT 96
--- NOTE | 2017-07-14 17:11 | RAD ---
PROCEDURE: HISTORY: As above COMPARISON: None TECHNIQUE: Total fluoroscopic time utilized during the procedure: 79.1 seconds. Total dose 8.16 mGy cm squared FINDINGS: Submitted images from the current procedure: 8 Please refer to the physician's notes performing the procedure. IMPRESSION: Less than 1 hour fluoroscopic time utilized during performance of the procedure
--- NOTE | 2017-07-15 01:03 | OP ---
PROCEDURE DATE: 07/14/2017 PREOPERATIVE DIAGNOSIS: Pseudoaneurysm, right arm arteriovenous fistula. POSTOPERATIVE DIAGNOSIS: Pseudoaneurysm, right arm arteriovenous fistula. PROCEDURE CARRIED OUT: Fistulogram, right arm. SURGEON: Dante Gould Jr., MD. ADMITTING REPRESENTATIVE: Dr. Rice. TYPE OF ANESTHESIA: Local with sedation. ANESTHESIA ADMINISTERED BY: . INDICATIONS: The patient is a middle-aged woman with renal insufficiency, presently diagnosed with basilic vein transposition of fistula in right arm. She has had some problems with extravasation and a slow pseudoaneurysm developed. Initially, consideration was given to bridging this with a stent. OPERATIVE FINDINGS: 1. There was some aneurysmal degeneration of the proximal brachial artery. 2. 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 Rest of the intraoperative findings were unremarkable. DESCRIPTION OF PROCEDURE: The patient was given local anesthesia. Using micropuncture technique and ultrasound guidance, the fistula was punctured and directed towards the arterial anastomosis. Multiple pictures were taken, which were demonstrated as mentioned above. Subsequently, we then injected centrally and there was no evidence of any central vein stenosis. Pressure was then applied to the side. Additional ultrasound measurements were taken. Because of the limited size, the pseudoaneurysm is going to be monitored at present. Dante Gould Jr., MD
== END 2017-07-14 14:30 | disposition home or self-care (01) ==
LOC: C.SDS 09:43
PROVIDERS: ATTEND Surgery Vascular Surgery
DX: T82.898A Other specified complication of vascular prosthetic devices, implants and grafts, initial encounter (principal); I12.0 Hypertensive chronic kidney disease with stage 5 chronic kidney disease or end stage renal disease; N18.6 End stage renal disease; Z99.2 Dependence on renal dialysis; Y83.2 Surgical operation with anastomosis, bypass or graft as the cause of abnormal reaction of the patient, or of later complication, without mention of misadventure at the time of the procedure
CPT/HCPCS: 36415; 36901; 80048; C1769; J0690; J2001; J2250; J2405; J2704; J3010; J7030; J7040